=== PATIENT | female | born 1940 | race Caucasian/White ===

== ENCOUNTER → 2016-10-16 | Outpatient (CLI) | payer MEDICARE ==
[~2016-10-16] MED LIST: ASPIRIN81 M1; COUMADIN1 MG PO; DARVOCET N 1001 TAB PO; DAYPRO600 M1 PO; DELTASONE10 MG PO; DIGOXIN0.125 MG PO; DOXYCYCLINE HY100 M5 PO; HYZAAR 50/12.5M1 TAB PO; KEFLEX500 MG PO; LOPRESSOR25 MG PO; PRILOSEC OTC20 MG PO; PROMETHAZINE DM; ZITHROMAX250 MG PO
[2016-10-16 13:24] LABS: BASO # 0.1 10*3/uL (0.0-0.1); BASO % 1.1 % (0.0-1.0); EOS # 0.1 10*3/uL (0.0-0.4); EOS % 2.1 % (1.0-4.0); HEMATOCRIT 33.9 % (37.0-47.0); HEMOGLOBIN 11.1 g/dl (12.0-16.0); LYMPH % 38.1 % (27.0-41.0); MEAN CELL VOLUME 101.2 fl (81.0-99.0); MEAN CORPUSCULAR HGB 33.1 pg (27.0-31.0); MEAN CORPUSCULAR HGB CONC 32.7 g/dl (33.0-37.0); MEAN PLATELET VOLUME 12.8 fl (9.6-12.3); MONO # 0.4 10*3/uL (0.1-1.0); MONO % 8.3 % (3.0-9.0); NEUT # 2.7 10*3/uL (2.3-7.9); PLATELET COUNT AUTOMATED 134 10*3/uL (130-400); RED BLOOD COUNT 3.35 10*6/uL (4.10-5.10); RED CELL DISTRI WIDTH 14.6 % (0-14.5); WHITE BLOOD COUNT 5.3 10*3/uL (4.8-10.8)
[2016-10-16 13:38] LABS: ALKALINE PHOSPHATASE 238 U/L (45-117); BILIRUBIN, TOTAL 1.2 mg/dl (0.2-1.0); BUN 20 mg/dl (7-24); CARBON DIOXIDE 26 mmol/L (21-32); CHLORIDE 107 mmol/L (98-107); CHOLESTEROL 175 mg/dL (<200); EST GLOM FILT AFRICAN AMERICAN > 60 ml/min; FREE THYROXIN INDEX/T7 2.4 (1.5-5.4); GLUCOSE 89 mg/dL (65-99); HDL CHOLESTEROL 65 mg/dl (40-60); LDL CHOLESTEROL 99 mg/dL (9-159); POTASSIUM 3.6 mmol/L (3.5-5.1); SGOT/AST 95 IU/L (3-35); SGPT/ALT 70 U/L (12-78); SODIUM 140 mmol/L (136-145); T3 UPTAKE 32 % (31-39); THYROXINE (T4) TOTAL 7.6 ug/dl (4.8-13.9); TOTAL PROTEIN 7.3 gm/dL (6.4-8.2); TRIGLYCERIDES 56 mg/dl (<150); VLDL CHOLESTEROL 11 mg/dL (6-40)
== END | disposition home or self-care (01) ==
LOC: LAB 12:36
PROVIDERS: Internal Medicine
DX: I34.1 Nonrheumatic mitral (valve) prolapse (principal); I10 Essential (primary) hypertension; K74.60 Unspecified cirrhosis of liver; E78.2 Mixed hyperlipidemia; E03.9 Hypothyroidism, unspecified

== ENCOUNTER 2016-10-21 18:53 | Inpatient (IN) | payer MEDICARE ==
[~2016-10-21] VITALS: Ht 160 cm; Wt 53.2 kg
[2016-10-21] VITALS (9 sets, daily range): BP systolic 105–119; BP diastolic 49–59
--- NOTE | ~2016-10-21 | WRIGHTHP ---
[place], [place] PATIENT HISTORY AND PHYSICAL EXAM NAME: GILBERT BOUDREAUX [facility] #: [id number] UNIT #: [id number] ROOM: [facility] DOCTOR: SIL JIMENES MD BIRTHDATE: [birth year] DOS: 10/22/2016 HISTORY OF PRESENT ILLNESS: A 76 years old white female, known case of COPD, cirrhosis of liver, systemic hypertension, cardiomegaly, mitral and tricuspid regurgitation and intermittent atrial fibrillation, was seen in the Emergency Room with black tarry stool, which she has been experiencing for the last few days and was noted to have a hemoglobin of 6.4 and was started on IV fluids and blood transfusion and admitted to the hospital for further management. The patient denies any history of abdominal pain or any altered bowel movements. PAST MEDICAL HISTORY: Pertinent for celiac disease and lactose intolerance, atrial fibrillation intermittent, mitral and tricuspid regurgitation, biatrial enlargement and LVH, COPD, hyperproteinemia, hyperlipidemia, stable 4 mm nodule right upper lobe, osteopenia, cirrhosis of liver. PAST SURGICAL HISTORY: Status post partial hysterectomy in the remote past in [place], [place]. MEDICATIONS: She is on aspirin enteric coated 81 mg daily, Caltrate with vitamin D 1 b.i.d., Klor-Con 8 mEq once a day, Losartan/hydrochlorothiazide 50/12.5 mg, half a tablet daily, multivitamin once a day, vitamin C 500 mg once a day, vitamin D3 400 International units once a day. SOCIAL HISTORY: Former smoker, 20 pack years for 30 years. FAMILY HISTORY: She is , 2 boys and 2 girls. Mother is hypertensive and father of CA. PHYSICAL EXAMINATION: GENERAL: The patient is comfortable in bed. HEAD AND ENT: Benign. VITAL SIGNS: Weight is 112 pounds, height is 63 inches. Blood pressure is 90/60, heart rate is 86 and regular, respirations are 16. NECK: JVP is not visualized. No carotid bruit. LUNGS: Increased AP diameter of the chest. Air entry equal on both sides. No foreign sounds noted. CARDIOVASCULAR: Heart size is upper limit of normal. First and second heart sounds are normal. Grade I/ ejection systolic murmur noted over the precordium. ABDOMEN: Very minimal tenderness in the epigastrium. There is no guarding or rigidity. No masses palpable. Peristalsis is normal. Hernia sites negative. EXTREMITIES: Benign. No evidence of edema or phlebitis. Peripheral pulsations bilaterally, 1/4 plus. LYMPHATICS: Lymph nodes are negative. NEUROLOGIC: Checkup is normal. IMPRESSION: 1. Acute upper gastrointestinal bleeding with hypotension and anemia. 2. Unknown case of systemic hypertension. 3. Cardiomegaly with mitral regurgitation, tricuspid regurgitation and [place], [place] PATIENT HISTORY AND PHYSICAL EXAM [facility]: [id number] UNIT #: [id number] ROOM: [facility] DOCTOR: SIL JIMENES MD BIRTHDATE: [birth year] intermittent atrial fibrillation, cirrhosis of liver, known alcoholic and osteopenia and chronic obstructive lung disease. PLAN: RBC transfusions, IV fluids, IV Protonix and p.o. Gaviscon. GI consultation with Dr. Cheek has been obtained for EGD and colonoscopy. We will continue to monitor her H and H pending EGD findings. SIL JIMENES MD CM:HISPHYS:PATIENT HISTORY AND PHYSICAL EXAMINATION 1310 1342 SIL JIMENES MD 10/22/16 1341 interface
--- NOTE | ~2016-10-21 | PR ---
[place], [place] PROGRESS NOTE [id number] UNIT #: [id number] ROOM: [facility]- DOCTOR: SIL JIMENES MD BIRTHDATE: [birth year] DOS: SUBJECTIVE: This 76-year-old white female admitted with upper GI bleeding with hemoglobin of 6. She has been treated with 3 units of RBC transfusions and this morning her hemoglobin is 9.3 with hematocrit of 27.7. EGD was performed yesterday by Dr. Cheek and showed evidence of bleeding from esophageal varices and banding procedure was performed. This patient has a known case of cirrhosis of liver, nonalcoholic. OBJECTIVE: VITAL SIGNS: This patient is hemodynamically stable with heart rate of 62 and blood pressure of 120/60. Temperature is normal. LUNGS: Clear without any foreign sounds. HEART: Sounds are normal without any evidence of murmur or gallop. ABDOMEN: Soft and nontender. EXTREMITIES: Benign without any evidence of edema or phlebitis. The patient has IV normal saline running at 100 mL an hour. She is also on IV Protonix 40 mg IV every 12 hours and getting soft liquid diet due to banding procedure for esophageal varices. We will repeat her H and H and continue present line of medications. Family member is present in exam room and all questions answered. SIL JIMENES MD CM:PNTRANS 1329 19 SIL JIMENES MD 10/23/161819 interface
--- NOTE | ~2016-10-21 | ECHO ---
[place], [place] ADULT ECHOCARDIOGRAPHY REPORT NAME GILBERT BOUDREAUX UNIT #: [id number] ROOM: [facility]- DOCTOR: JALIL NEUMANN,SIL BIRTHDATE: [birth year] DOS: SUBJECTIVE: This 76-year-old white female, a known case of cirrhosis of liver, admitted with upper gastrointestinal bleeding, which was noted to be coming from the esophageal varices and banding was performed by scourer, Dr. Cheek. Post-procedure, she is doing very well. Her blood pressure is everyday improving and this morning it is 140/76, heart rate of 80, normal temperature. Her H and H is also stable with hemoglobin of 9.5, it was 6.4 on admission. She is on full liquid diet and also getting IV fluids and IV Protonix 40 mg q.12h. and other p.r.n. orders. Clinically, she is doing very well. OBJECTIVE: HEART: Her heart sounds are normal. LUNGS: Clear. ABDOMEN: Soft and nontender. There is a [id number] amount of ascites due to underlying cirrhosis of liver. There is no tenderness and peristalsis is normal. EXTREMITIES: Benign without any evidence of edema or phlebitis. PLAN: To transfer now this patient from ICU to [facility] and since I am going out of town, I will transfer this patient to services of hospitalist. SIL JIMENES MD CM:ECHO:ADULT ECHOCARDIOGRAPHY REPORT 1317 1537 SIL JIMENES MD
--- NOTE | ~2016-10-21 | CON ---
[place], [place] REPORT OF CONSULTATION NAME: GILBERT BOUDREAUX UNIT #: [id number] ROOM: [facility] DOCTOR: RIVERA NEUMANNRODNEY BIRTHDATE: [birth year] DOS: 10/22/2016 HISTORY OF PRESENT ILLNESS: A 76-year-old patient who has presented with black tarry stool, initially was evaluated in the Emergency Room, was found to have H and H of 11 and 33, macrocytic indices. Comprehensive metabolic panel was done. Electrolytes balanced, BUN and creatinine within normal limits, and bilirubin 1.2, AST of 95, ALT of 70, alkaline phosphatase 238. Thyroid studies normal appearing. White blood cell 16, H and H dropped to 6 and 20.8, macrocytic indices. Platelets 171. Lactic acid 3.7. Chest x-ray, emphysematous chest, cardiopulmonary status was reassessed. Lipase was 298, alkaline phosphatase again remains elevated at 204. C-reactive protein normal. Lactic acid 1.2, lactic acid 1.3 again was reassessed. H and H did not improve more than 6.4 and 19 after 1 unit of packed cells transfusion. The patient therefore admitted for definitive evaluation. The patient with cirrhosis, hypertension, pneumonia, atrial fibrillation, pulmonary nodules, these are also established in the past. The patient with history of celiac disease. PAST SURGICAL HISTORY: Hysterectomy, cataracts. SOCIAL HISTORY: One pack smoker and nonalcohol consumer. She tells me many years ago she drank alcohol. ALLERGIES: No known medication. FAMILY HISTORY: Unremarkable. MEDICATION LIST: Recent data is reviewed. REVIEW OF SYSTEMS: HEENT: Denies double vision, blurred vision. RESPIRATORY: Denies shortness of breath. CARDIOVASCULAR: Denies chest pain. DIGESTIVE SYSTEM: History of cirrhosis and hematemesis. PHYSICAL EXAMINATION: VITAL SIGNS: Stable. HEENT: Head normocephalic, nontraumatic. Mouth and buccal mucosa benign. NECK: Supple, no thyromegaly, no cervical lymphadenopathy. CHEST: Symmetric anatomy, equal expansion. No wheeze, no rhonchi. HEART: Normal sinus rhythm. No gallop, no murmur. ABDOMEN: Evidence of ascites was felt on physical examination with shifting fluid. EXTREMITIES: No cyanosis, no pedal edema. NEUROLOGIC: Alert, oriented to time, place and person. No evidence of encephalopathy at the present time. IMPRESSION: Abnormal liver function test, history of macrocytic anemia, drop in hemoglobin and hematocrit, black tarry stool, ruling out portal hypertension, ruling out esophageal varicosity. Other adjunctive diagnoses; systemic hypertension is being managed, transfusion in progress, workup in effect and [place], [place] REPORT OF CONSULTATION NAME: GILBERT BOUDREAUX UNIT #: [id number] ROOM: [facility] DOCTOR: RODNEY STAFFORD MD BIRTHDATE: [birth year] underlying liver disease, etiology in question at the present time. RODNEY STAFFORD MD CM:CONSTR:REPORT OF CONSULTATION 1257 10/23/16 0205 interface
--- NOTE | ~2016-10-21 | O ---
[place], [place] OPERATIVE NOTE NAME: GILBERT BOUDREAUX UNIT #: [id number] ROOM: [facility]- DOCTOR: RIVERA NEUMANNRODNEY BIRTHDATE: [birth year] DOS: INDICATIONS: The patient is a 76-year-old who has presented with chief complaint of GI bleed aggressively and has been undergoing investigation. She received 1 unit of packed cell. Her H and H remained around 6 and 19. She was given 2 more units, she continued to have melanotic stool. She was not on anticoagulants. The patient carries a vague history of alcohol consumption aggressively when she was in high school and about, but the story and the amount and duration of alcohol consumption was not adding up to me. She is having history of celiac sprue that she has known about for past 10 years as well. PROCEDURE: Today's procedure part of investigation is panendoscopy plus esophageal band ligation of varicosity. PREMEDICATION: Versed and Diprivan. SCOPE: Olympus forward-viewing gastroscope Q10 video. REPORT: After putting the patient in the left lateral position and after application of lubricant to the scope, the scope was introduced. Thereafter, under direct visualization, I advanced through the length of the esophagus. Lower third of the esophagus, a 4+ esophageal varicosity at 2 o'clock position was identified with a bleeding spot on the surface and photographed. Gastric pouch was entered. Hiatal hernia and proximal gastric varicosities were identified. Residual blood in the stomach was noticed. Duodenal bulb, second and third part within normal limits. Withdrawing the scope back to the target point which is lower esophagus and the bleeding is spot targeted and 3 band ligation on the same spot was performed. Photographic series obtained. Ligation was successful. The patient extubated, tolerated procedure well. IMPRESSION: 1. Esophageal varicosity with bleeding spot status post band ligation. 2. Hiatal hernia. 3. Proximal gastric varicosity as well. Definitely the source of bleeding was addressed with the above procedure explained above. PLAN AND DISCUSSION: Due to the fact that she is hypotensive, we will withhold ADAM inhibitor and thiazide derivatives, BP medication and we will await until she has to recovery of her blood pressure and at such a time, we do definitively ensure that the patient remains on beta eugenio to reduce her portal pressure as well as systemic pressure and based on addition of beta eugenio, we can built on additional coverage if ADAM inhibitors are necessary. On the other hand, we can even use Corgard 12.5 mg in future instead of Inderal. On further discussion, she is going to stay on ice cream, milk shake and ice cold liquids for the next 3 days to prevent mechanical trauma to the band ligation and soft diet thereafter for 10 days for sure and transfusion of 2 units today. Follow up on H and H tomorrow morning and 4 hours after transfusion today, continuation with PPI, Protonix 40 mg daily to reduce acidity and symptomatology of dyspepsia and clinical reassessment. This patient has history of cirrhosis, partially could be secondary to underlying old history of alcohol, partially could be secondary [place], [place] OPERATIVE NOTE NAME: GILBERT BOUDREAUX UNIT #: [id number] ROOM: [facility] DOCTOR: RIVERA NEUMANN,RODNEY BIRTHDATE: [birth year] to celiac disease and contribution from autoimmune hepatitis, all has been on the differential consideration. On the other hand, we are going to organize a CT scan of the abdomen and pelvis. We are concerned to assure that there is no pathology beyond what I expect in the liver particularly to rule out cholangiocarcinoma or any other lesions in the liver, except nodularity. I am sure that we are going to find some ascites in the abdomen as well. Thank you very much indeed. RODNEY STAFFORD MD CM:OPRECORD:OPERATIVE NOTE 1347 1426 RODNEY STAFFORD MD 10/22/16 1426 interface
[2016-10-21 19:43] LABS: BASO % 0.2 % (0.0-1.0); EOS # 0.2 10*3/uL (0.0-0.4); EOS % 1.2 % (1.0-4.0); HEMATOCRIT 20.8 % (37.0-47.0); HEMOGLOBIN 6.6 g/dl (12.0-16.0); LYMPH # 2.5 10*3/uL (1.3-4.4); LYMPH % 15.3 % (27.0-41.0); MEAN CELL VOLUME 105.6 fl (81.0-99.0); MEAN CORPUSCULAR HGB 33.5 pg (27.0-31.0); MEAN CORPUSCULAR HGB CONC 31.7 g/dl (33.0-37.0); MEAN PLATELET VOLUME 13.2 fl (9.6-12.3); MONO # 1.4 10*3/uL (0.1-1.0); MONO % 8.4 % (3.0-9.0); NEUT # 12.1 10*3/uL (2.3-7.9); PLATELET COUNT AUTOMATED 171 10*3/uL (130-400); RED BLOOD COUNT 1.97 10*6/uL (4.10-5.10); RED CELL DISTRI WIDTH 16.8 % (0-14.5); WHITE BLOOD COUNT 16.3 10*3/uL (4.8-10.8)
[2016-10-21 19:53] LABS: ACT PARTIAL THROMBO TIME 23.6 SECONDS (20.8-31.5); INTERNATIONAL NORM RATIO 1.1 (2.0-3.5)
[2016-10-21 20:05] LABS: ALBUMIN 2.4 gm/dl (3.1-4.5); ALKALINE PHOSPHATASE 204 U/L (45-117); BUN 40 mg/dl (7-24); CHLORIDE 106 mmol/L (98-107); CREATININE 0.72 mg/dL (0.55-1.02); LIPASE 298 U/L (73-393); POTASSIUM 4.2 mmol/L (3.5-5.1); SGOT/AST 95 IU/L (3-35); SGPT/ALT 66 U/L (12-78); SODIUM 140 mmol/L (136-145); TOTAL PROTEIN 5.9 gm/dL (6.4-8.2)
[2016-10-21 20:10] LABS: TROPONIN I < 0.015 ng/ml (<0.045)
[2016-10-21 20:29] LABS: BILIRUBIN NEGATIVE (NEGATIVE); BLOOD NEGATIVE (NEGATIVE); CLARITY CLEAR (CLEAR); COLOR YELLOW (YELLOW); GLUCOSE NEGATIVE (NEGATIVE); KETONE NEGATIVE (NEGATIVE); LEUKO ESTERASE NEGATIVE (NEGATIVE); NITRITE NEGATIVE (NEGATIVE); UROBILINOGEN 0.2 E.U./dl (0.2-1.0)
[2016-10-21 20:40] LABS: BACTERIA TRACE; RBC 0-2 rbc/hpf (0-2); WBC 0-2 wbc/hpf (0-5)
[2016-10-21] MEDS ORDERED: MULTIVITAMINS1 EAC5 PO (22:57)
[2016-10-21] MEDS ORDERED: CALCIUM + VITA1 EAC2 PO (22:58)
[2016-10-21] MEDS ORDERED: CO Q-1010 M2 PO (22:58)
[2016-10-21] MEDS ORDERED: PROBIOTIC COMP1 EACH PO (22:59)
[2016-10-21] MEDS ORDERED: LOSARTAN-HCTZ1 EAC2 PO (23:00)
[2016-10-21] MEDS ORDERED: ATIVAN0.5 MG PO (23:01)
[2016-10-22] VITALS (15 sets, daily range): BP systolic 90–133; BP diastolic 41–74
[2016-10-22 06:20] LABS: HEMATOCRIT 19.5 % (37.0-47.0); HEMOGLOBIN 6.4 g/dl (12.0-16.0)
[2016-10-22 17:30] LABS: HEMATOCRIT 28.8 % (37.0-47.0)
[2016-10-23] VITALS: BP 106/57
[2016-10-23 04:00] VITALS: BP 103/52
[2016-10-23 07:04] LABS: HEMATOCRIT 27.7 % (37.0-47.0); HEMOGLOBIN 9.3 g/dl (12.0-16.0)
[2016-10-23 08:00] VITALS: BP 114/60
[2016-10-23 12:00] VITALS: BP 120/63
[2016-10-23 16:00] VITALS: BP 118/61
[2016-10-23 20:00] VITALS: BP 133/66
[2016-10-24] VITALS: BP 127/68
[2016-10-24 04:00] VITALS: BP 130/71
[2016-10-24 06:04] LABS: HEMATOCRIT 28.7 % (37.0-47.0); HEMOGLOBIN 9.5 g/dl (12.0-16.0)
[2016-10-24 08:00] VITALS: BP 134/68
[2016-10-24 12:00] VITALS: BP 140/76
[2016-10-24 16:00] VITALS: BP 128/78
[2016-10-24 20:00] VITALS: BP 120/60
[2016-10-25] VITALS: BP 141/71
[2016-10-25 06:09] LABS: HEMATOCRIT 28.6 % (37.0-47.0); HEMOGLOBIN 9.3 g/dl (12.0-16.0)
[2016-10-25 08:00] VITALS: BP 143/62
[2016-10-25 12:00] VITALS: BP 131/70
[2016-10-25 16:00] VITALS: BP 136/70
[2016-10-25 20:00] VITALS: BP 125/67
[2016-10-26] VITALS: BP 107/42
[2016-10-26 06:24] LABS: HEMATOCRIT 28.4 % (37.0-47.0); HEMOGLOBIN 9.4 g/dl (12.0-16.0)
[2016-10-26 08:00] VITALS: BP 119/55
[2016-10-26] MEDS ORDERED: PROTONIX40 MG PO (08:47)
== END 2016-10-26 10:39 | disposition home or self-care (01) | DRG 432 ==
LOC: ED 18:53 → EDHOLD 21:18 → ICCU 21:18 → 5E 21:18 → ICCU 21:27 → 5E 10-25 06:10
PROVIDERS: Internal Medicine; Student in an Organized Health Care Education/Training Program; ADMIT Internal Medicine
PROC: 30233N1 Transfusion of Nonautologous Red Blood Cells into Peripheral Vein, Percutaneous Approach (ICD-10-PCS; 2016-10-21)
PROC: 06L34CZ Occlusion of Esophageal Vein with Extraluminal Device, Percutaneous Endoscopic Approach (ICD-10-PCS; principal; 2016-10-22)
DX: K70.30 Alcoholic cirrhosis of liver without ascites (principal); E43 Unspecified severe protein-calorie malnutrition; I85.11 Secondary esophageal varices with bleeding; E87.2 Acidosis; I95.9 Hypotension, unspecified; D62 Acute posthemorrhagic anemia; R65.10 Systemic inflammatory response syndrome (SIRS) of non-infectious origin without acute organ dysfunction; I08.1 Rheumatic disorders of both mitral and tricuspid valves; J44.9 Chronic obstructive pulmonary disease, unspecified; E78.5 Hyperlipidemia, unspecified; I11.9 Hypertensive heart disease without heart failure; M85.80 Other specified disorders of bone density and structure, unspecified site; K44.9 Diaphragmatic hernia without obstruction or gangrene; I48.0 Paroxysmal atrial fibrillation; I86.4 Gastric varices; Z68.20 Body mass index [BMI] 20.0-20.9, adult; Z79.899 Other long term (current) drug therapy; Z90.710 Acquired absence of both cervix and uterus; Z87.891 Personal history of nicotine dependence; Z82.49 Family history of ischemic heart disease and other diseases of the circulatory system; Z80.8 Family history of malignant neoplasm of other organs or systems

== ENCOUNTER → 2016-11-09 | Outpatient (CLI) | payer MEDICARE ==
[~2016-11-09] MED LIST changes: +ATIVAN0.5 MG PO; +CALCIUM + VITA1 EAC2 PO; +CO Q-1010 M2 PO; +LOSARTAN-HCTZ1 EAC2 PO; +MULTIVITAMINS1 EAC5 PO; +PROBIOTIC COMP1 EACH PO; +PROTONIX40 MG PO
[2016-11-09 10:47] LABS: BASO # 0.1 10*3/uL (0.0-0.1); BASO % 1.8 % (0.0-1.0); EOS # 0.1 10*3/uL (0.0-0.4); EOS % 1.8 % (1.0-4.0); HEMATOCRIT 37.8 % (37.0-47.0); LYMPH # 1.2 10*3/uL (1.3-4.4); LYMPH % 26.8 % (27.0-41.0); MEAN CELL VOLUME 102.7 fl (81.0-99.0); MEAN CORPUSCULAR HGB 32.6 pg (27.0-31.0); MEAN CORPUSCULAR HGB CONC 31.7 g/dl (33.0-37.0); MEAN PLATELET VOLUME 11.5 fl (9.6-12.3); MONO # 0.5 10*3/uL (0.1-1.0); MONO % 10.5 % (3.0-9.0); NEUT # 2.7 10*3/uL (2.3-7.9); NEUT % 58.9 % (47.0-73.0); PLATELET COUNT AUTOMATED 188 10*3/uL (130-400); RED BLOOD COUNT 3.68 10*6/uL (4.10-5.10); RED CELL DISTRI WIDTH 14.6 % (0-14.5); WHITE BLOOD COUNT 4.6 10*3/uL (4.8-10.8)
[2016-11-09 11:15] LABS: ALBUMIN 2.7 gm/dl (3.1-4.5); ALKALINE PHOSPHATASE 248 U/L (45-117); BUN 8 mg/dl (7-24); CHLORIDE 108 mmol/L (98-107); CREATININE 0.57 mg/dL (0.55-1.02); POTASSIUM 3.9 mmol/L (3.5-5.1); SGOT/AST 108 IU/L (3-35); SGPT/ALT 72 U/L (12-78); SODIUM 140 mmol/L (136-145); TOTAL PROTEIN 7.1 gm/dL (6.4-8.2)
[2016-11-09 11:16] LABS: ACT PARTIAL THROMBO TIME 28.4 SECONDS (20.8-31.5); INTERNATIONAL NORM RATIO 1.1 (2.0-3.5)
== END | disposition home or self-care (01) ==
LOC: EDSTATUS 11:00
PROVIDERS: Internal Medicine Gastroenterology
DX: R18.8 Other ascites (principal); J90 Pleural effusion, not elsewhere classified

== ENCOUNTER 2017-02-25 16:26 | Inpatient (IN) | payer MEDICARE ==
[~2017-02-25] VITALS: Ht 160 cm; Wt 61.0 kg
--- NOTE | ~2017-02-25 | CON ---
[place], [place] REPORT OF CONSULTATION NAME: GILBERT BOUDREAUX UNIT #: [id number] ROOM: 512 DOCTOR: DANIELLA ESPAÑA MDARNAUD BIRTHDATE: [birth year] DOS: 02/26/2017 PULMONARY CONSULTATION CONSULTATION REQUESTED BY: Hospitalist Services. REASON FOR CONSULTATION: Pleural fluid. HISTORY OF PRESENT ILLNESS: This is a 76-year-old white female who was noted relative poor historian. She has been admitted to the hospital. As the patient developed symptoms of increased abdominal distention with the shortness of breath. The shortness of breath has been noted with gradual worsening. The patient was also noted with edema of the left lower extremity as well. The shortness of breath and other symptoms had been noted to gradually progress in the past week or so. The patient did report symptoms of cough, which are noted nonproductive intermittently as well. She has symptoms of wheezing or any chest pain. She has been recently diagnosed with cirrhosis of the liver. The patient in October 2016 was transferred [facility] for the GI bleeding, noted gastric esophageal varices, which were banded. The patient denies any symptoms of chest pain or hemoptysis. Shortness of breath has been noted the same since admission. REVIEW OF SYSTEMS: CONSTITUTIONAL: The patient reported symptoms of fatigue and tiredness. Denies any fever or chills. EYES: Denies any burning, redness, or tenderness. EAR, NOSE, THROAT SYMPTOMS: No sore throat. No otalgia, postnasal drainage or epistaxis. CARDIOVASCULAR: Denies angina pain, edema, pain of the lower extremities at this time, but reported with edema of the left lower extremity seem to be decreased ____. GASTROINTESTINAL: Abdominal distention, most likely ascites. There was no pain described. There were symptoms of hematemesis, melena, or hematochezia reported. Denies any history of abnormal weight loss. GENITOURINARY SYMPTOMS: Dysuria, suprapubic pain, hematuria. MUSCULOSKELETAL: Denies acute joint pain, redness, tenderness. SKIN: Denies lesions or rashes. CENTRAL NERVOUS SYSTEM: Denies any dizziness, headache, diplopia, syncopal episodes. The remaining systems were reviewed. They were noted all negative. PAST MEDICAL HISTORY: 1. Cirrhosis of the liver. 2. Hypercholesterolemia. 3. Anemia. 4. GI bleeding and chronic disease. 5. History of celiac disease. 6. History of atrial fibrillation. 7. History of hypercholesterolemia. [place], [place] REPORT OF CONSULTATION NAME: GILBERT BOUDREAUX UNIT #: [id number] ROOM: 512 DOCTOR: DANIELLA ESPAÑA MD,ARNAUD BIRTHDATE: [birth year] 8. History of essential hypertension. SOCIAL HISTORY: The patient is currently . She lives at home. Denies history of alcohol use, illicit drug use at this time. She stated she has smoked cigarettes, which were discontinued approximately 30 years ago, used to smoke about a pack of cigarettes per day. FAMILY HISTORY: Reported, the father from complication related to colon cancer at the age of 60+ years old. HOME MEDICATIONS: Listed use of calcium carbonate, oral Lasix, probiotic, Ativan, losartan with hydrochlorothiazide, multivitamin, Protonix, potassium chloride and CoQ10. DRUG ALLERGIES: Lactose intolerance. PHYSICAL EXAMINATION: GENERAL: This is a 76-year-old female who has been noted currently awake and alert without any acute distress at the time of the assessment. VITAL SIGNS: Height was recorded by the nursing staff at the time of admission with height of 5 feet 3 inches, weight 134 pounds, BMI 23.8. Vital signs are normal temperature, respiratory rate 18-16, heart rate 83-89, blood pressure 118/51-128/54. Pulse oxygen saturation on 2 liters 99% saturation. HEENT: Shows head was atraumatic. Eyes nonicterus. NECK: Supple. CARDIOVASCULAR: S1, S2 is audible. LUNGS: The patient was noted without any crackles. Decreased breath sounds are noted significant in the left and the lower lung, which are noted much more on the left than the right lower lung. There were no crackles heard. ABDOMEN: Soft, nontender. EXTREMITIES: The patient was noted without any acute edema. LABORATORY DATA: The chest x-ray that was done was noted with findings of rounded opacity noted in the right lower lung, which was seen previously on the chest x-ray that was done few weeks ago. ASSESSMENT. Interval development of appear like partially loculated pleural fluid developed moderate size in the left side mild cardiomegaly. The patient was also seen, there were no findings of acute congestive heart failure as well. LABORATORY DATA: Other labs were reviewed. CBC on 02/25/2017, hemoglobin 8.7, hematocrit 28.1, WBC count normal, platelet count were normal. PT/PTT yesterday was noted with normal PT and PTT. CMP on 02/25/2017. Normal BUN and creatinine. Potassium noted mildly decreased at 3.4. ____ noted as 2.6 with a total bilirubin 1.2 and AST of 70. BMP was noted at 350. CBC this morning WBC count of 4.2, hemoglobin 7.7, hematocrit 24.1, platelet count 187,000. Ammonia level noted mildly elevated at 44. The PT/INR 1.2 this morning. BMP this morning, normal BUN and creatinine. Potassium has been corrected. The abdomen still noted decreased with bilirubin 1.1, AST of 58. Alkaline phosphate of 180. [place], [place] REPORT OF CONSULTATION NAME: GILBERT BOUDREAUX UNIT #: [id number] ROOM: 512 DOCTOR: DANIELLA ESPAÑA MD,ARNAUD BIRTHDATE: [birth year] IMPRESSION: 1. The patient who has been currently admitted to the hospital noted current symptoms related to the current pleural fluid density in the right lower lobe. The patient was noted ventral hernia containing fat or eventration of the diaphragm or mass could be considered. 2. Partially loculated pleural fluid, etiology unclear at this time with a history of known ascites and cirrhosis of the liver. 3. Past history of remote nicotine abuse. The patient discontinued approximately 30 years ago. There has not been any diagnosis of past COPD reported. 4. History of essential hypertension. 5. Anxiety disorder. 6. Anemia related to past gastrointestinal bleeding. 7. Current leukopenia may be related to underlying cirrhosis of the liver. PLAN OF MANAGEMENT: CT scan of the chest has been ordered without contrast that will be assessed for this patient prior to making any further determination, intervention of assessment pleural fluid. Thoracentesis of the patient sampling of the pleural fluid might be needed. The mass lesion noted in the right lung the patient will be addressed accordingly. Other supportive therapy, plan of management and care. Usual care. Additional treatment changes will be recommended based on the progression of the illness. Thanks for allowing me to participate in the care of this patient. ARNAUD BREWER MD CM:CONSTR:REPORT OF CONSULTATION 1255 02/26/177 interface
--- NOTE | ~2017-02-25 | CON ---
[place], [place] REPORT OF CONSULTATION NAME: GILBERT BOUDREAUX UNIT #: [id number] ROOM: 512 DOCTOR: RODNEY STAFFORD MD BIRTHDATE: [birth year] DOS: 02/27/2017 HISTORY OF PRESENT ILLNESS: A 76-year-old patient who presented with chief complaint of distention of the abdomen, tiredness and was investigated and was found to have white blood cell of 5, H and H of 8 and 25 with platelet count of 238. INR of 1.1. Comprehensive metabolic panel, GFR normal. Electrolytes borderline. Liver function tests, elevated SGOT 70, alkaline phosphatase 230. Magnesium and BNP normal. Chest x-ray and CT scan of the abdomen was reviewed, not only ascites, cirrhosis and right middle lung mass and thyroid carcinoma has been identified. Serum ammonia level 44. Urinalysis, heavy gram-positive cocci on board in the presence of intense ascites, which is a risk factor for spontaneous bacterial peritonitis. PAST MEDICAL HISTORY: Nonalcoholic steatohepatitis, hypercholesterolemia, atrial fibrillation, celiac disease, hypertension, anemia, hyperammonemia. SOCIAL HISTORY: Nonsmoker and nonalcohol consumer. FAMILY HISTORY: Noncontributory. ALLERGIES: LACTOSE INTOLERANT. MEDICATIONS: List has been reviewed. REVIEW OF SYSTEMS: HEENT: Denies double vision, blurred vision. RESPIRATORY: Admits to shortness of breath. CARDIOVASCULAR: Denies chest pain. DIGESTIVE SYSTEM: Cirrhosis, intense ascites. GENITOURINARY: Urinary tract infection. PHYSICAL EXAMINATION: HEENT: Head is normocephalic, nontraumatic. Mouth and buccal mucosa benign. NECK: Supple. No thyromegaly, no cervical lymphadenopathy. CHEST: Symmetric anatomy, equal expansion. LUNGS: Muffled breath sounds at bases of the lungs to almost no air entry. HEART: Normal sinus rhythm at the present time, grade 2/6 systolic murmur. ABDOMEN: Distended, dense, most likely another gallon of fluid ascites in the abdomen. Bowel sounds present. EXTREMITIES: Soft. A 2+ edema was noticed. NEUROLOGIC: Appears to be alert and oriented. Labs reviewed, records reviewed, data reviewed. IMPRESSION: Pleural effusion, lung mass, cirrhotic liver with nonalcoholic steatohepatitis etiology most likely, ascites formation, hyperammonemia, anemia, all has been recognized. PLAN AND DISCUSSION: This patient is status post 3 liters of ascites removal. She appears to have a very dense abdomen and also some difficulty with breathing. Therefore, we are going to request Dr. Fagan to consider a [place], [place] REPORT OF CONSULTATION NAME: GILBERT BOUDREAUX UNIT #: [id number] ROOM: [facility] DOCTOR: RIVERA NEUMANN,RODNEY BIRTHDATE: [birth year] thoracentesis before her discharge as well as a paracentesis sono-guided through Radiology so that we can have enough reserve for lung expansion. On the other hand, she requires to be on antibiotic therapy to prevent spontaneous bacterial peritonitis. RODNEY STAFFORD MD CM:CONSTR:REPORT OF CONSULTATION 1541 02/28/17 0030 interface
--- NOTE | ~2017-02-25 | PR ---
[place], [place] PROGRESS NOTE NAME: GILBERT BOUDREAUX [facility] #: [id number] UNIT #: [id number] ROOM: 512 DOCTOR: DANIELLA ESPAÑA MDARNAUD BIRTHDATE: [birth year] DOS: 02/27/2017 SUBJECTIVE: She has been using oxygen supplementation. The patient underwent paracentesis yesterday was done by the radiology service. Total 3100 mL of pleural fluid was collected. She denies any cough. Denies any symptoms of hemoptysis or any chest pain. OBJECTIVE: VITAL SIGNS: The patient showed normal temperature, respiratory rate 18, heart rate 77, blood pressure 102/46-107/50. The pulse oxygen saturation on room air 99% saturation this morning. Previous 2 liters was 98% saturation. HEENT: Showed no acute change. NECK: Supple. CARDIOVASCULAR: S1, S2 audible. LUNGS: Decreased breath sounds noted in the right lower lobe as previously as well as in the right lower lung. There were no wheezing or crackles. ABDOMEN: Soft, at this time noted reduction of the ascites. The bowel sounds are present. EXTREMITIES: Showed minimal ankle edema. LABORATORY DATA: CBC today: WBC count normal, hemoglobin 8.2, hematocrit of 25.9, platelet count 218,000. BMP of the patient, normal BUN and creatinine. Potassium was noted decreased at 3.3. Cell count of the peritoneal fluid noted as 73. The CT scan of the chest that was done yesterday shows moderate to large left pleural fluid was noted with small possible medium right pleural effusion. The area of compression atelectasis noted. IMPRESSION: The patient who has been currently noted at this time with bilateral large pleural fluid, most related to underlying liver cirrhosis, additional problem such as cardiac etiology, congestive heart failure would be considered. Atypical etiology pleural fluid still cannot be excluded including malignancy because of the atypical presentation. The fluid noted much larger on the left than the right side. PLAN OF MANAGEMENT: The patient was recommended for thoracentesis with ultrasound-guided, but the patient deferred that. She would like to be treated this conservatively with diuretic therapy and monitoring at the present time. If she does change her mind for thoracentesis, certainly it could be done at the bedside. In the meantime, continue to optimize the nutritional status as well. Usual care, other supportive plan of therapy and care. [place], [place] PROGRESS NOTE NAME: GILBERT BOUDREAUX UNIT #: [id number] ROOM: 512 DOCTOR: ARNAUD HANSON MD BIRTHDATE: [birth year] ARNAUD BREWER MD CM:ELIJAH [id number] ARNAUD ESPAÑA MD 02/27/171845 interface
--- NOTE | ~2017-02-25 | PR ---
[place], [place] PROGRESS NOTE NAME: GILBERT BOUDREAUX UNIT #: [id number] ROOM: 512 DOCTOR: ARNAUD HANSON MD BIRTHDATE: [birth year] DOS: 02/28/2017 SUBJECTIVE: She has been noted comfortable at this time. Plan for paracentesis today because of the recurrence of the ascites. She has not been noted any symptoms of acute shortness of breath. Mild shortness of breath was noted with exertion. She denies any chest pain. She has been completely weaned off the oxygen supplementation. OBJECTIVE: VITAL SIGNS: Normal temperature, respiratory rate 18, heart rate of 83, blood pressure 113/54 with a normal temperature. HEENT: Showed no acute change. NECK: Supple. CARDIOVASCULAR: S1, S2 is audible. LUNGS: The patient was noted without any crackles or wheezing. Decreased breath sounds are noted in the lower lungs bilaterally, more on the left than the right side. ABDOMEN: With ascites. EXTREMITIES: Mild edema. LABORATORY DATA: CBC this morning, WBC count 4.7, hemoglobin 8.5, hematocrit 27.0, platelet count 236,000. The BMP on 02/28/2017, BUN and creatinine was normal. Potassium 3.1. IMPRESSION: 1. The patient with a mass, which was noted connected to the heart in the right middle lobe. Large in size, more than 6 cm noted on the chest x-ray was confirmed with the CT scan. 2. Bilateral pleural fluid noted, greater on the left than the right side. 3. Hypokalemia secondary to the diuretic therapy. Acute cirrhosis of the liver. PLAN OF MANAGEMENT: At this time, further thoracentesis will be deferred for the patient. The patient will be continued to be treated medically. Supplementation of potassium. Proceed with paracentesis. Outpatient followup for the assessment of the mass and the pleural fluid would be done. Other supportive therapy, plan of management and care. Usual treatment, all other plan of care. [place], [place] PROGRESS NOTE NAME: GILBERT BOUDREAUX UNIT #: [id number] ROOM: 512 DOCTOR: ARNAUD HANSON MD BIRTHDATE: [birth year] ARNAUD BREWER MD CM:PNTRANS [phone] ARNAUD ESPAÑA MD 02/28/17 1437 interface
[2017-02-25 16:47] VITALS: BP 117/59
[2017-02-25] MEDS ORDERED: POTASSIUM CHLOR8 ME1 PO (16:48)
[2017-02-25] MEDS ORDERED: LOSARTAN-HCTZ1 EACH PO (16:48)
[2017-02-25] MEDS ORDERED: FUROSEMIDE20 M1 PO (16:49)
[2017-02-25 17:15] LABS: BASO # 0.1 10*3/uL (0.0-0.1); BASO % 1.2 % (0.0-1.0); EOS # 0.2 10*3/uL (0.0-0.4); EOS % 3.8 % (1.0-4.0); HEMATOCRIT 28.1 % (37.0-47.0); HEMOGLOBIN 8.7 g/dl (12.0-16.0); LYMPH # 1.9 10*3/uL (1.3-4.4); LYMPH % 37.4 % (27.0-41.0); MEAN CELL VOLUME 88.1 fl (81.0-99.0); MEAN CORPUSCULAR HGB 27.3 pg (27.0-31.0); MEAN PLATELET VOLUME 10.3 fl (9.6-12.3); MONO # 0.6 10*3/uL (0.1-1.0); MONO % 12.3 % (3.0-9.0); NEUT # 2.2 10*3/uL (2.3-7.9); NEUT % 45.1 % (47.0-73.0); PLATELET COUNT AUTOMATED 238 10*3/uL (130-400); RED BLOOD COUNT 3.19 10*6/uL (4.10-5.10); RED CELL DISTRI WIDTH 16.7 % (0-14.5)
[2017-02-25 17:24] LABS: ACT PARTIAL THROMBO TIME 27.8 SECONDS (20.8-31.5); INTERNATIONAL NORM RATIO 1.1 (2.0-3.5)
[2017-02-25 17:30] LABS: ALBUMIN 2.6 gm/dl (3.1-4.5); ALKALINE PHOSPHATASE 223 U/L (45-117); BUN 12 mg/dl (7-24); CHLORIDE 109 mmol/L (98-107); CREATININE 0.72 mg/dL (0.55-1.02); POTASSIUM 3.4 mmol/L (3.5-5.1); SGOT/AST 70 IU/L (3-35); SGPT/ALT 43 U/L (12-78); SODIUM 142 mmol/L (136-145); TOTAL PROTEIN 7.1 gm/dL (6.4-8.2)
[2017-02-25 17:47] VITALS: BP 118/56
[2017-02-25 18:07] LABS: TROPONIN I < 0.015 ng/ml (<0.045)
[2017-02-25 18:53] LABS: BILIRUBIN NEGATIVE (NEGATIVE); BLOOD NEGATIVE (NEGATIVE); CLARITY CLEAR (CLEAR); COLOR YELLOW (YELLOW); GLUCOSE NEGATIVE (NEGATIVE); KETONE NEGATIVE (NEGATIVE); LEUKO ESTERASE 1+ (NEGATIVE); NITRITE NEGATIVE (NEGATIVE); PH 5.5 (5.0-9.0); SPECIFIC GRAVITY <= 1.005 (1.005-1.030); UROBILINOGEN 0.2 E.U./dl (0.2-1.0)
[2017-02-25 19:02] LABS: BACTERIA 1+; EPITHELIAL CELLS 0-2
[2017-02-25 19:50] VITALS: BP 128/54
--- NOTE | 2017-02-25 19:57 | NUR ---
RPEORT HAS BEEN GIVEN. BED NUMBER WAS CHANGED FROM 504 TO 512. ALSO ROOM IS NOT CLEANED OR READY FOR PATIENT.
[2017-02-25 20:20] VITALS: BP 128/54
--- NOTE | 2017-02-25 20:20 | NUR ---
A 76, admitted to 5E, under the services of CHENCHO Ortiz DO with a diagnosis of PLEURAL EFFUSION WITH HEPATIC DISORDER, DYSPNEA ON EXERTION, CIRRHOSIS/ASCITES. Chief complaint is SOB. Patient arrived via bed from ER. Monitor applied. Initial assessment completed. Vital signs taken and recorded. CHENCHO ORTIZ DO notified of admission to the unit. Orders received. See assessment for past medical history, medications and allergies. Patient and/or family oriented to unit. visitation policy reviewed. Clothing/patient valuable form completed. MAY PIERRE
--- NOTE | 2017-02-25 21:15 | NUR ---
DR. STAFFORD AND DR. BREWER NOTIFIED OF CONSULTS. NEW ORDERS NOTED FROM DR. STAFFORD.
[2017-02-26] VITALS: BP 100/49
[2017-02-26 04:00] VITALS: BP 118/51
--- NOTE | 2017-02-26 06:11 | NUR ---
DR. ALVARADO NOTIFIED PATIENT'S MED REQ IS UP TO DATE.
[2017-02-26 06:30] LABS: BASO # 0.1 10*3/uL (0.0-0.1); BASO % 1.4 % (0.0-1.0); EOS # 0.2 10*3/uL (0.0-0.4); EOS % 4.5 % (1.0-4.0); HEMATOCRIT 24.1 % (37.0-47.0); HEMOGLOBIN 7.7 g/dl (12.0-16.0); LYMPH # 1.7 10*3/uL (1.3-4.4); LYMPH % 39.1 % (27.0-41.0); MEAN CELL VOLUME 86.1 fl (81.0-99.0); MEAN CORPUSCULAR HGB 27.5 pg (27.0-31.0); MEAN PLATELET VOLUME 10.6 fl (9.6-12.3); MONO # 0.6 10*3/uL (0.1-1.0); MONO % 14.7 % (3.0-9.0); NEUT # 1.7 10*3/uL (2.3-7.9); NEUT % 40.1 % (47.0-73.0); PLATELET COUNT AUTOMATED 207 10*3/uL (130-400); RED CELL DISTRI WIDTH 16.8 % (0-14.5); WHITE BLOOD COUNT 4.2 10*3/uL (4.8-10.8)
[2017-02-26 06:43] LABS: ALBUMIN 2.2 gm/dl (3.1-4.5); ALKALINE PHOSPHATASE 180 U/L (45-117); BUN 10 mg/dl (7-24); CHLORIDE 112 mmol/L (98-107); CHOLESTEROL 114 mg/dL (<200); CREATININE 0.64 mg/dL (0.55-1.02); FREE T4 1.74 ng/dl (0.76-1.46); HDL CHOLESTEROL 40 mg/dl (40-60); LDL CHOLESTEROL 67 mg/dL (9-159); PHOSPHOROUS 2.9 mg/dL (2.5-4.9); POTASSIUM 3.9 mmol/L (3.5-5.1); SGOT/AST 58 IU/L (3-35); SGPT/ALT 36 U/L (12-78); SODIUM 143 mmol/L (136-145); TOTAL PROTEIN 6.1 gm/dL (6.4-8.2); TRIGLYCERIDES 36 mg/dl (<150); VLDL CHOLESTEROL 7 mg/dL (6-40)
[2017-02-26 07:02] LABS: INTERNATIONAL NORM RATIO 1.2 (2.0-3.5)
--- NOTE | 2017-02-26 07:40 | NUR ---
Shift chart check completed.
[2017-02-26 08:00] VITALS: BP 126/54
[2017-02-26 08:10] VITALS: BP 132/86
--- NOTE | 2017-02-26 09:00 | NUR ---
Test Borer in to talk to patient. Patient states lives at home with alone. There are few steps in the home. Physician: brianne Pharmacy: [facility] health services: none Patient's level of ADLs: INDEPENDENT Patient has working utilities: all working DME: none Follow-up physician's appointment after d/c: will be made by hospitalist nurse director upon discharge Does patient want to access PORTAL?: no Discharge plan discussed with patient, patient states she lives at home alone, son lives near and visits and helps on a daily basis, patient states she gets around fine, patient states she will be going back home when able. discussed with her VNA and she states she doesn't need any at this time. JEWEL COSTA
[2017-02-26 14:06] LABS: BODY FLUID WBC 73 /uL
[2017-02-26 14:48] LABS: BF LYMPHOCYTES 20 %; BF MACROPHAGES 71 %; BF MESOTHELIALS 4 %; BF NEUTROPHILS 5 %
[2017-02-26 16:00] VITALS: BP 132/60
--- NOTE | 2017-02-26 19:20 | NUR ---
PATIENT MEDICATED WITH IVP MORPHINE FOR PAIN AND CRAMPING IN HER LEGS RATED 8/10
[2017-02-26 20:22] VITALS: BP 105/51
--- NOTE | 2017-02-26 22:03 | NUR ---
PATIENT MEDICATED WITH NORCO FOR COMPLAINTS OF LEG CRAMPS. LYING IN BED CRYING WITH PAIN. WILL MONITOR FOR EFFECTIVENESS. CALL LIGHT IN REACH.
[2017-02-27] VITALS: BP 106/50
--- NOTE | 2017-02-27 | NUR ---
NORCO EFFECTIVE AT THIS TIME. PATIENT SAID IT FINALLY QUIT HURTING. NO SIGNS OR SYMPTOMS OF DISTRESS AT THIS TIME. WILL CONTINUE TO MONITOR. CALL LIGHT IN REACH.
[2017-02-27 07:03] LABS: BASO # 0.1 10*3/uL (0.0-0.1); EOS # 0.2 10*3/uL (0.0-0.4); EOS % 4.2 % (1.0-4.0); HEMATOCRIT 25.9 % (37.0-47.0); HEMOGLOBIN 8.2 g/dl (12.0-16.0); LYMPH # 2.1 10*3/uL (1.3-4.4); LYMPH % 42.2 % (27.0-41.0); MEAN CELL VOLUME 85.8 fl (81.0-99.0); MEAN CORPUSCULAR HGB 27.2 pg (27.0-31.0); MEAN CORPUSCULAR HGB CONC 31.7 g/dl (33.0-37.0); MEAN PLATELET VOLUME 10.5 fl (9.6-12.3); MONO # 0.7 10*3/uL (0.1-1.0); NEUT # 1.9 10*3/uL (2.3-7.9); NEUT % 38.4 % (47.0-73.0); PLATELET COUNT AUTOMATED 218 10*3/uL (130-400); RED BLOOD COUNT 3.02 10*6/uL (4.10-5.10); RED CELL DISTRI WIDTH 17.2 % (0-14.5)
[2017-02-27 07:33] LABS: CHLORIDE 105 mmol/L (98-107); POTASSIUM 3.3 mmol/L (3.5-5.1); SODIUM 138 mmol/L (136-145)
[2017-02-27 07:39] LABS: BUN 11 mg/dl (7-24); CREATININE 0.74 mg/dL (0.55-1.02)
[2017-02-27 08:00] VITALS: BP 107/50
[2017-02-27 12:00] VITALS: BP 102/46
--- NOTE | 2017-02-27 16:11 | NUR ---
SPOKE WITH DR BREWER. HE STATED HE PROBABLY WON'T DO THE THORACENTESIS TOMORROW. HE STATED IT IS MORE IMPORTANT THAT THE PATIENT HAVE A PARACENTESIS. HE STATED HE WILL SEE HER TOMORROW.
[2017-02-27 16:39] VITALS: BP 104/48
[2017-02-27 20:08] VITALS: BP 101/48
[2017-02-28] VITALS: BP 95/45
--- NOTE | 2017-02-28 02:38 | NUR ---
PATIENT RESTING IN BED WITH EYES CLOSED. NO SIGNS OR SYMPTOMS OF DISTRESS NOTED. AROUSES TO VERBAL STIMULI. NO COMPLAINTS OF PAIN OR DISCOMFORT VOICED. WILL CONTINUE TO MONITOR. CALL LIGHT IN REACH.
[2017-02-28 07:09] LABS: BASO # 0.1 10*3/uL (0.0-0.1); BASO % 1.1 % (0.0-1.0); EOS # 0.2 10*3/uL (0.0-0.4); EOS % 4.3 % (1.0-4.0); HEMOGLOBIN 8.5 g/dl (12.0-16.0); LYMPH # 1.8 10*3/uL (1.3-4.4); LYMPH % 38.7 % (27.0-41.0); MEAN CELL VOLUME 85.7 fl (81.0-99.0); MEAN CORPUSCULAR HGB CONC 31.5 g/dl (33.0-37.0); MEAN PLATELET VOLUME 11.1 fl (9.6-12.3); MONO # 0.5 10*3/uL (0.1-1.0); MONO % 10.2 % (3.0-9.0); NEUT # 2.1 10*3/uL (2.3-7.9); NEUT % 45.5 % (47.0-73.0); PLATELET COUNT AUTOMATED 236 10*3/uL (130-400); RED BLOOD COUNT 3.15 10*6/uL (4.10-5.10); RED CELL DISTRI WIDTH 17.1 % (0-14.5); WHITE BLOOD COUNT 4.7 10*3/uL (4.8-10.8)
[2017-02-28 07:22] LABS: BUN 13 mg/dl (7-24); CHLORIDE 101 mmol/L (98-107); CREATININE 0.73 mg/dL (0.55-1.02); POTASSIUM 3.1 mmol/L (3.5-5.1); SODIUM 137 mmol/L (136-145)
[2017-02-28 08:00] VITALS: BP 113/54
--- NOTE | 2017-02-28 11:00 | NUR ---
PATIENT OFF FLOOR TO ULTRASOUND FOR PARACENTESIS.
--- NOTE | 2017-02-28 11:24 | NUR ---
PT BACK TO FLOOR. PARACENTESIS WAS NOT COMPLETED DUE TO NOT ENOUGH ASCITES PRESENT. REPORT RECEIVED FROM NAHOMI IN ULTRASOUND.
--- NOTE | 2017-02-28 11:28 | NUR ---
DR BALL CALLED TO REPORT PARACENTESIS WAS NOT COMPLETED DUE TO TO SMALL AMOUNT OF ASCITES.
[2017-02-28] MEDS ORDERED: CIPRO500 MG PO (11:52)
[2017-02-28 12:00] VITALS: BP 98/50
--- NOTE | 2017-02-28 14:19 | NUR ---
Discharge instructions reviewed with patient/family. Patient receptive and verbalizes understanding. Follow-up care arranged. Written instructions given to patient/family. TEREZA GAMBINO
== END 2017-02-28 14:12 | disposition home or self-care (01) | DRG 432 ==
LOC: ED 16:26 → 5E 19:08 → EDHOLD 19:08 → 5E 19:30
PROVIDERS: Emergency Medicine; Family Medicine; Student in an Organized Health Care Education/Training Program; ADMIT Emergency Medicine
PROC: 0W9G3ZZ Drainage of Peritoneal Cavity, Percutaneous Approach (ICD-10-PCS; principal; 2017-02-26)
DX: K74.60 Unspecified cirrhosis of liver (principal); E43 Unspecified severe protein-calorie malnutrition; J91.8 Pleural effusion in other conditions classified elsewhere; E87.8 Other disorders of electrolyte and fluid balance, not elsewhere classified; I48.0 Paroxysmal atrial fibrillation; R06.09 Other forms of dyspnea; E72.20 Disorder of urea cycle metabolism, unspecified; R18.8 Other ascites; I85.10 Secondary esophageal varices without bleeding; Z68.23 Body mass index [BMI] 23.0-23.9, adult; D64.9 Anemia, unspecified; I25.10 Atherosclerotic heart disease of native coronary artery without angina pectoris; I10 Essential (primary) hypertension; E87.6 Hypokalemia; F41.9 Anxiety disorder, unspecified; K75.81 Nonalcoholic steatohepatitis (NASH); T50.2X5A Adverse effect of carbonic-anhydrase inhibitors, benzothiadiazides and other diuretics, initial encounter; D72.819 Decreased white blood cell count, unspecified; Z82.49 Family history of ischemic heart disease and other diseases of the circulatory system; Z98.49 Cataract extraction status, unspecified eye; Z90.710 Acquired absence of both cervix and uterus; Z79.899 Other long term (current) drug therapy; Z88.8 Allergy status to other drugs, medicaments and biological substances; Y92.89 Other specified places as the place of occurrence of the external cause

== ENCOUNTER 2017-05-10 08:52 | Inpatient (IN) | payer MEDICARE ==
[~2017-05-10] VITALS: Ht 157.4 cm; Wt 58.2 kg
--- NOTE | ~2017-05-10 | PR ---
[place], [place] PROGRESS NOTE NAME: GILBERT BOUDREAUX UNIT #: [id number] ROOM: 419 DOCTOR: RODNEY STAFFORD MD BIRTHDATE: [birth year] DOS: 05/15/2017 CHIEF COMPLAINT: A 77-year-old patient who has presented with ascites, anemia, drop in H and H, status post paracentesis, status post endoscopic evaluation and finding of hiatal hernia, esophageal varicosities, status post previous band ligation, not at this session, and gastritis, abnormal liver function tests. PAST MEDICAL HISTORY: Also associated with systemic hypertension, hypercholesterolemia, abnormal liver function tests, celiac disease, and atrial fibrillation. PAST SURGICAL HISTORY: Hysterectomy. REVIEW OF SYSTEMS: Today: HEENT: Denies double vision or blurred vision. RESPIRATORY: Denies acute shortness of breath. CARDIOVASCULAR: Denies acute chest pain. DIGESTIVE SYSTEM: No hematemesis, no hematochezia. PHYSICAL EXAMINATION: VITAL SIGNS: Frail patient. HEENT: Head normocephalic, nontraumatic. Mouth and buccal mucosa benign. NECK: Supple. No thyromegaly, no cervical lymphadenopathy. CHEST: Symmetric anatomy. LUNGS: Few scattered rhonchi. HEART: Atrial fibrillation with moderate ventricular response. ABDOMEN: Obese and presence of ascites fluid. EXTREMITIES: Trace pedal edema. NEUROLOGIC: Alert and oriented. She is not encephalopathic. LABORATORY DATA: Labs reviewed. Records reviewed. Most recent lab data shows sodium of 126. Liver function tests were identified, SGOT elevation of 60. CBC hemoglobin today is 7.8 and haematocrit 22.4 status post 2 units transfusion. Platelets remained about 230. Antral biopsy results, no H. pylori was noticed consistent with gastritis. Ultrasound and therapeutic paracentesis data is reviewed. PLAN AND DISCUSSION: Supportive management, beta blockers, and management of electrolyte imbalance and cirrhosis complications. [place], [place] PROGRESS NOTE NAME: GILBERT BOUDREAUX UNIT #: [id number] ROOM: 419 DOCTOR: RODNEY STAFFORD MD BIRTHDATE: [birth year] RODNEY STAFFORD MD CM:PNTRANS [phone] RODNEY STAFFORD MD 05/28/17 0870 interface
--- NOTE | ~2017-05-10 | PR ---
[place], [place] [facility]GRESS NOTE [id number] UN[facility] #: [id number] ROOM: [place] [address] DOCTOR: DANIELLA ESPAÑA MD,ARNAUD BIRTHDATE: [birth year] DOS: 05/12/2017 PULMONARY PROGRESS NOTE SUBJECTIVE: The patient had been noted with hypotension yesterday, which did not respond to the conservative treatment. She was given intravenous fluid bolus, later started on Levophed and transferred to Intensive Care Unit. The chest tube remains in place, about 600 mL of pleural fluid drainage was noted in the last 24 hours. The patient has not been noted any symptoms of hemoptysis. There were no symptoms of chest pain reported by the patient. The chest pain related to chest tube is controlled with use of Dilaudid as needed. Denies symptoms of nausea, vomiting, or abdominal pain. Denies any dizziness or headache. She was noted [id number] abdominal distention related to ascites, was not noted significant recurrence. Remaining systems were reviewed with the patient and they were noted all normal. PHYSICAL EXAMINATION: VITAL SIGNS: The vital signs of the patient showed blood pressure 135/52-102/49, the lowest blood pressure noted yesterday as 87/46. The respiratory rate was recorded as 16, heart rate is 77. Pulse oxygen saturation of the patient was noted as 95% on 2 liters nasal cannula. HEENT: Examination shows head was atraumatic. Eyes nonicterus. NECK: Supple. CARDIOVASCULAR: S1, S2 is audible. LUNGS: Noted with significant improvement in aeration of the left lung. The right lung was noted clear. ABDOMEN: Soft with [id number]-ta-[id number] ascites. Nontender. Bowel sounds present. EXTREMITIES: Without any edema. Loss of muscle mass, which is chronic. VISIBLE SKIN: No lesions or rashes. MUSCULOSKELETAL: Without acute deformities. CENTRAL NERVOUS SYSTEM: Intact. LABORATORY DATA: CBC of the patient this morning, WBC count 14.2, hemoglobin 7.6, and hematocrit 23.4. The BMP of the patient this morning, BUN 13, creatinine 1.05, glucose 123, and sodium 129. Blood culture, no bacterial growth from the 05/10/2017. The chest x-ray of the patient that was done this morning was reviewed shows marked improvement in the aeration of the lungs with a tiny left pneumothorax cannot be excluded. Chest tube remains in place in the left lower portion of the chest. Pleural fluid, pH was noted 7.50 yesterday. The cell count differential and chemistry of the patient noted WBC count 191,000. Differential including 54% lymphocytes and 37% macrophages. Glucose, total protein, LDH, clusters, and albumin all noted consistent with findings of transudative effusion. IMPRESSION: 1. Transudative pleural fluid on left side of the patient most likely related to ascites, hepatic issue would be very likely. The pleural fluid drainage of the patient has been noted gradually decreasing with improvement in aeration of the lung. [place], [place] PROGRESS NOTE NAME: GILBERT BOUDREAUX UNIT #: [id number] ROOM: [place] [address] DOCTOR: DANIELLA ESPAÑA MD,ARNAUD BIRTHDATE: [birth year] 2. The patient with hypotension, most likely intravascular volume depletion would be the likely reason. Currently responding to the treatment at the present time. 3. History of advanced liver cirrhosis. 4. Right middle lung mass of the patient as well. PLAN OF MANAGEMENT: Continue chest tube drainage at this time. Monitor pleural fluid drainage. Continue vasopressor with titration and discontinue vasopressor to maintain a mean arterial pressure of 65 or greater. Continuation other supportive therapy, plan of management, and care plan. Usual treatment, all other supportive, plan of management, and care plan. Chest tube at this time remains in place and does not require to be removed or any further intervention to be done. ARNAUD BREWER MD CM:PNTRANS [phone] ARNAUD ESPAÑA MD 05/13/17 0047 interface
--- NOTE | ~2017-05-10 | PR ---
[place], [place] PROGRESS NOTE NAME: GILBERT BOUDREAUX UNIT #: [id number] ROOM: 419 DOCTOR: DANIELLA ESPAÑA MD,ARNAUD BIRTHDATE: [birth year] DOS: 05/22/2017 SUBJECTIVE: She has been noted comfortable at this time without any acute distress. Denies symptoms of abdominal pain, noted with ascites of the abdomen secondary to cirrhosis of the liver. The cough has been noted decreased from yesterday. OBJECTIVE: VITAL SIGNS: For the patient which were recorded showed the temperature noted as 99.5 degree Fahrenheit, respiratory rate 16, heart rate 83, blood pressure 102/60. The pulse oxygen saturation was noted 95% on 3 liters nasal cannula. HEENT: Shows head was atraumatic. Eyes nonicterus. NECK: Supple. CARDIOVASCULAR: S1, S2 audible. LUNGS: Decreased breath sounds in lower portion of the lungs without any wheeze or crackles heard. ABDOMEN: Soft, nontender. EXTREMITIES: Without any acute edema. IMPRESSION: 1. The patient was encouraged noted stable at the present time with acute streptococcal pneumonia and tracheobronchitis. 2. Ascites liver cirrhosis. PLAN OF TREATMENT: No changes in the plan for this patient at this time, continue current plan of management. Consider paracentesis for enlarging ascitic fluid. ARNAUD BREWER MD CM:PNTRANS [phone] ARNAUD ESPAÑA MD 05/30/17 0838 interface
--- NOTE | ~2017-05-10 | PR ---
[place], [place] PROGRESS NOTE NAME: GILBERT BOUDREAUX UNIT #: [id number] ROOM: [place] [address] DOCTOR: DANIELLA ESPAÑA MD,ARNAUD BIRTHDATE: [birth year] DOS: 05/15/2017 SUBJECTIVE: The patient noted comfortable at this time. Chest tube is in place. Still noted large volume of pleural fluid drainage, remains off vasopressor. Denies symptoms of chest pain. Sitting this morning on the chair. OBJECTIVE: VITAL SIGNS: Normal temperature, respiratory rate 18, heart rate 88, blood pressure 98/58-105/51. Pulse oxygen saturation on 1 liter nasal cannula 99% saturation. HEENT: Examination shows no acute change. NECK: Supple. CARDIOVASCULAR: S1, S2 audible. LUNGS: The patient was noted without any wheeze or crackles present time. Decreased breath sounds in the right lower lung. ABDOMEN: Soft, nontender. IMPRESSION: 1. The patient with resolving pleural fluid progressively with the lung remained expanded. Large volume pleural fluid drainage was still noted from the left pleura. The drainage of pleural fluid noted 510 mL. 2. Oxdnx-bv-loaxjqhi right pleural fluid was also noted. PLAN OF TREATMENT: Chemical pleurodesis to be done tomorrow morning. The procedure was discussed with the patient and the son in detail today. The procedure will be done tomorrow morning at the bedside. ARNAUD BREWER MD CM:PNTRANS [phone] ARNAUD ESPAÑA MD 05/15/17 1731 interface
--- NOTE | ~2017-05-10 | PR ---
[place], [place] PROGRESS NOTE NAME: GILBERT BOUDREAUX UNIT #: [id number] ROOM: 419 DOCTOR: ARNAUD AHNSON MD BIRTHDATE: [birth year] DOS: 05/21/2017 SUBJECTIVE: The patient noted comfortable at this time, resting in the bed. The coughing has been noted to increase as discussed with the patient. There was no abdominal pain. Denies symptoms of nausea, vomiting or diarrhea. Denies symptoms of hemoptysis. The patient was continued on intravenous Levaquin as it was ordered. General weakness and fatigue was reported. Abdominal pain sees to be increased. The remaining systems were reviewed, they were noted all negative. OBJECTIVE: VITAL SIGNS: For the patient shows a temperature noted low grade 99.5-99.7 degree Fahrenheit, respiratory rate 16, heart rate 74, blood pressure 161-109/48. Pulse oxygen saturation for the patient was recorded as 92% on room air. HEENT: Examination shows head was atraumatic. Eyes nonicterus. NECK: Supple. CARDIOVASCULAR: S1, S2 is audible. LUNGS: The patient was noted without any wheezing. Scattered crackles of the lung were noted in lungs bilaterally. ABDOMEN: Soft with ascites which has been increasing gradually. Visible skin for the patient noted No lesions or rashes. MUSCULOSKELETAL: Without any acute deformities. SKIN: With icterus. LABORATORY DATA: The urine antigen, the patient with strep pneumonia was noted positive. Legionella was noted as negative. IMPRESSION: 1. The patient who had been currently is suspected with acute pneumonia. The patient with strep pneumonia, responding to the treatment with use of intravenous Levaquin that remains the same. 2. Recurrence of the ascites with history of advanced liver cirrhosis. 3. Status post successful chemical pleurodesis of the left large pleural effusion. PLAN OF MANAGEMENT: Continue antibiotics and monitoring temperature curve. Consider paracentesis to be repeated again for this patient for the recurrence of the ascites. Continuation of bronchodilator treatment therapy, plan of management and care. Additional treatment changes to be made for the patient based on progression of the illness. [place], [place] PROGRESS NOTE NAME: GILBERT BOUDREAUX UNIT #: [id number] ROOM: 419 DOCTOR: ARNAUD HANSON MD BIRTHDATE: [birth year] ARNAUD BREWER MD CM:PNMANAN [phone] ARNAUD ESPAÑA MD 05/30/17 0835 interface
--- NOTE | ~2017-05-10 | PR ---
[place], [place] PROGRESS NOTE [id number] #: [id number] ROOM: [place] [address] DOCTOR: DANIELLA ESPAÑA MD,ARNAUD BIRTHDATE: [birth year] DOS: 05/13/2017 PULMONARY PROGRESS NOTE SUBJECTIVE: The patient has been noted progressive anemia. GI assessment for the patient has been ordered. The patient was assessed by Dr. Cheek with plan of getting an EGD done today. Chest tube remains in place in the left hemithorax. The drainage of the pleural fluid was noted in the last 24 hours as 775 mL of pleural fluid drainage. The patient has not been noted any symptoms of hemodynamic instability. There were no symptoms of chest pain. Denies any abdominal pain. Intermittent mild hypotension was still noted. OBJECTIVE: VITAL SIGNS: Showed blood pressure 94/46 to 102/64, respiratory rate of the patient recorded as 14-12, heart rate of 75-83. Temperature of the patient noted as normal. HEENT: Showed head was atraumatic, eyes nonicterus. NECK: Supple. CARDIOVASCULAR: S1, S2 is audible. LUNGS: The patient was noted without any wheezing or crackles. Breaths are noted mildly decreased in the lower portion of the lungs bilaterally. ABDOMEN: Soft, nontender. EXTREMITIES: Without any acute edema. LABORATORY DATA: The patient's chest x-ray done this morning was reviewed, lungs remained fully expanded bilaterally, right middle lung mass as previous noted with small pleural fluid on the right side was also seen with today's chest x-ray. The echocardiogram for the patient that was completed today was reviewed and assessed by Dr. Lake on 05/13/2017, findings reported as normal left ventricular function with diastolic dysfunction. CBC of the patient this morning: Hemoglobin 6.8, hematocrit 20.5, platelet count normal, WBC count normal. BMP: BUN 38, creatinine 1.29, glucose 101, sodium 125. Blood culture, no bacterial growth. IMPRESSION: 1. The patient with persistent hypotension still noted, large volume of pleural fluid drainage was noted from the left pleural space, 750 mL of pleural fluid noted. 2. Persistent hypotension, on vasopressor therapy. 3. Advanced liver cirrhosis as well. Transudative effusion for the patient was noted from the chest tube, most likely related to the past liver disease, most likely the reason, or congestive heart failure combination. 4. Right middle lobe mass. 5. Abnormal ground glass opacity noted with abnormal SUV uptake in the right upper lobe as well. PLAN OF MANAGEMENT: Continue the chest tube with drainage at this time. Continue with vasopressor therapy, bronchodilators, and oxygen supplementation. Repeat chest x-ray in the morning for reassessment. Other supportive plan of therapy and care plan as well. Usual treatment with additional treatment [place], [place] PROGRESS NOTE NAME: GILBERT BOUDREAUX UNIT #: [id number] ROOM: [place] [address] DOCTOR: DANIELLA ESPAÑA MD,ARNAUD BIRTHDATE: [birth year] changes to be made based on the progression of the illness. ARNAUD BREWER MD CM:PNTRANS [phone] ARNAUD ESPAÑA MD 05/14/17 0159 interface
--- NOTE | ~2017-05-10 | PROC NOTE ---
[place], [place] PROCEDURE NOTE NAME: GILBERT BOUDREAUX UNIT #: [id number] ROOM: 419 DOCTOR: DANIELLA ESPAÑA MD,ARNAUD BIRTHDATE: [birth year] DOS: 05/16/2017 PROCEDURE: Pleurodesis on the left pleural space. PREOPERATIVE DIAGNOSIS: The patient with large volume pleural fluid drained from the left pleural space. A transudative effusion. POSTOPERATIVE DIAGNOSIS: Pleurodesis was done with talc slurry. PROCEDURE DESCRIPTION: Informed consent obtained from the patient. The patient placed in the right lateral body position. The chest tube was clamped. Talc slurry, which was made with 5 grams of talc with 20 mL of 2% lidocaine remaining saline total volume of 50 mL injected through the chest tube for the patient without difficulty. Additional 100 mL of normal saline was flushed as well. The pain management will be continued. No complications noted immediately after the procedure. The chest tube remained clamped for 2 hours and then will be relieved to suction. ARNAUD BREWER MD CM:PROCNOTE:PROCEDURE NOTE [id number] ARNAUD ESPAÑA MD
--- NOTE | ~2017-05-10 | CON ---
[place], [place] REPORT OF CONSULTATION NAME: GILBERT BOUDREAUX UNIT #: [id number] ROOM: 411 DOCTOR: DANIELLA ESPAÑA MDARNAUD BIRTHDATE: [birth year] DOS: 05/11/2017 REASON FOR CONSULTATION: Assess the patient for large pleural fluid for the patient in the left side. HISTORY OF PRESENT ILLNESS: A 77-year-old white female patient known to me, was seen in the office prior to the hospitalization. The patient recommended hospitalization as she was seen in the office after follow with her previous known right middle lobe mass. She has been noted shortness of breath occurring minimal exertion, progressive worsening of shortness breath were reported. She was reported as symptoms of nonproductive cough. Denies symptoms of chest pain. She was also noted progressive increase in the abdomen secondary to the ascites. She has a recent PET scan rather done which was completed in [facility] for the patient on 05/06/2017, which shows evidence of a large pleural fluid noted as a new finding on the left side. The mass lesion in the right middle lobe does not show any abnormality; however, there is ground glass opacities identified for the area about 4-5 cm in the right upper lobe, which was noted with mild increase of SUV of 5.7. The patient denies any symptoms of wheezing. REVIEW OF SYSTEMS: CONSTITUTIONAL: General weakness and fatigue was noted for this patient. EYES: Denies burning, redness, tenderness. EAR, NOSE, THROAT SYMPTOMS: Denies sore throat, hoarseness, otalgia, postnasal drainage or epistaxis. CARDIOVASCULAR: Time done pain, edema, pain of the lower extremities. GASTROINTESTINAL SYMPTOMS: The patient was noted with reduction of the abdominal distention after paracentesis done yesterday. There were no abdominal pain, hematemesis, nausea, vomiting, diarrhea or hematochezia reported. Denies symptoms of dysphagia. GENITOURINARY SYMPTOMS: Dysuria, suprapubic pain, hematuria. MUSCULOSKELETAL: Denies acute joint pain, redness, or tenderness. SKIN: Denies lesions or rashes. CENTRAL NERVOUS SYSTEM: General weakness and fatigue. There were no focal deficits reported for the patient or tingling sensation of the extremities. Remaining systems were reviewed. The patient, they were noted all negative. PAST MEDICAL HISTORY: 1. History of liver cirrhosis. 2. Hypercholesterolemia. 3. Anemia of chronic disease. 4. Past GI bleeding and past gastrointestinal bleeding. 5. History of celiac disease. 6. Atrial fibrillation. 7. Hypercholesterolemia. 8. Essential hypertension. SOCIAL HISTORY: The patient is , lives at home. She denies any alcohol or illicit drug use. Tobacco use for the patient was noted in the past for [place], [place] REPORT OF CONSULTATION NAME: GILBERT BOUDREAUX UNIT #: [id number] ROOM: 411 DOCTOR: ARNAUD HANSON MD BIRTHDATE: [birth year] about a pack of cigarettes per day since teenager, discontinued 30 years ago. FAMILY HISTORY: Father of complication related to colon cancer at the age of 60+ years old. MEDICATIONS: Current administered medication was noted as use of multivitamin, losartan, Lasix, Lovenox for DVT prophylaxis, Protonix, OxyContin and lorazepam. DRUG ALLERGIES: The patient was noted as no known drug allergies. PHYSICAL EXAMINATION: GENERAL: A 77-year-old white female who has been currently lying in the bed without any acute distress, chronic ill-looking, patient appeared to be malnourished and pallor. Height of the patient recorded by the nursing staff on the current admission 5 feet 2 inches, weight of 151, BMI 27.5. VITAL SIGNS: Normal temperature, respiratory 18-19, heart rate of 103-95, blood pressure 99/53 and 118/68. Pulse oxygen saturation on room air 97% saturation. HEENT: Examination shows head was atraumatic. Eyes nonicterus. NECK: Supple. Sunken eyes. CARDIOVASCULAR SYSTEM: S1, S2 audible. LUNGS: The patient noted with absent breath sounds noted middle lower portion of the left lung in the right lower lung base. ABDOMEN: Soft with ascites, decreased. There was no tenderness. Bowel sounds present. EXTREMITIES: Without any edema, clubbing, cyanosis, loss of muscle mass. VISIBLE SKIN: No lesions or rashes. LABORATORY DATA: CBC of the patient of 05/10/2017, for the patient, WBC count normal, hemoglobin 8.1, hematocrit 25.2, platelet count were normal. Lactic acid 2.1 on admission. PT/INR 1.2. On admission, normal PTT. CMP on admission: BUN 27, creatinine was normal, glucose normal. Sodium 131, total bilirubin 1.3, AST of 64. Alkaline phosphatase 180 with normal troponin. Albumin 2.3. The followup lactic acid 1.7. Ammonia level 22 yesterday. CMP today for the patient noted normal BUN and creatinine, sodium 133, albumin 2.6. CBC: Hemoglobin 7.8, hematocrit 23.7, platelet count normal. WBC count normal. The abdominal series x-ray of the patient noted persistent right middle lobe mass for the patient has previously known unchanged with a small right pleural fluid, moderate size partially loculated left pleural fluid noted. IMPRESSION: 1. The patient will be currently admitted to the hospital noted with a large progressive left pleural fluid with small right pleural fluid with ascites and advanced liver cirrhosis and liver dysfunction. 2. The patient with chronic loss of muscle mass was also noted. 3. Abnormal LFTs. 4. Edema of the lower extremity secondary to possibility of congestive heart failure. PLAN OF TREATMENT: The patient has been suggested about the chest tube insertion for the drainage of current large pleural fluid and that will be [place], [place] REPORT OF CONSULTATION NAME: GILBERT BOUDREAUX UNIT #: [id number] ROOM: 411 DOCTOR: ARNAUD HANSON MD BIRTHDATE: [birth year] analyzed for the patient for infection and malignancy. Less likely, this caused to be related to any infection. After the drainage of pleural fluid analysis additional change in the treatment will be done. Consider changing the diuretic intervenous for the patient formulation. Paracentesis to be done periodically. The patient to help relieve the discomfort, which will be therapeutic as well. Supportive therapy, plan of management and other care plan. Usual treatment as previously ordered in progress. Supportive care. Thanks for allowing me to participate in the care of this patient. ARNAUD BREWER MD CM:CONSTR:REPORT OF CONSULTATION 1008 05/11/17 1302 interface
--- NOTE | ~2017-05-10 | PROC NOTE ---
[place], [place] PROCEDURE NOTE NAME: GILBERT BOUDREAUX UNIT #: [id number] ROOM: [facility] DOCTOR: DANIELLA ESPAÑA MD,ARNAUD BIRTHDATE: [birth year] DOS: 05/10/2017 CHEMICAL PLEURODESIS NOTE. PREOPERATIVE DIAGNOSIS: The patient with a continued pleural fluid drainage in the left side. POSTOPERATIVE DIAGNOSES: Chemical pleurodesis performed at the bedside without difficulty. PROCEDURE DESCRIPTION: Informed consent obtained for the patient. She was already lying in the right lateral position. The chest tube was clamped. The talc slurry for this patient made with 20 mL of lidocaine. A 5 grams of sterile talc and remaining saline, total of 60 mL volume injected through the chest tube in the left pleural space without difficulty. Additional 100 mL was flushed through the chest tube without any difficulty. The patient was premedicated with morphine sulfate. We will continue the morphine, intermittent use at 2 mg q. 1 hour for the management of any pain. Chest tube remained clamped for 2 hours and then we released to the suction. X-ray will be done in the morning for the patient as well as monitor the pleural fluid drainage for this patient as well. ARNAUD BREWER MD CM:PROCNOTE:PROCEDURE NOTE [id number] ARNAUD ESPAÑA MD
--- NOTE | ~2017-05-10 | EKG ---
[place], [place] ELECTROCARDIOGRAM REPORT NAME: GILBERT BOUDREAUX UNIT #: [id number] ROOM: [place] [address] DOCTOR: DANIELLA ESPAÑA MD,ARNAUD BIRTHDATE: [birth year] DOS: 05/10/2017 The electrocardiogram done for the patient on 05/10/2017 at 9:26 a.m. Shows atrial flutter for the patient with 3 x 1 range. The heart rate patient noted 100 beats per minute. Prolonged QTC interval for the patient was also noted. There were no changes of acute ischemia. Nonspecific ST-T changes noted. ARNAUD BREWER MD CM:EKGRPT:ELECTROCARDIOGRAM REPORT [id number] ARNAUD ESPAÑA MD
--- NOTE | ~2017-05-10 | PR ---
[place], [place] PROGRESS NOTE [id number] UNIT #: [id number] ROOM: [place] [address] DOCTOR: DANIELLA ESPAÑA MD,ARNAUD BIRTHDATE: [birth year] DOS: 05/14/2017 SUBJECTIVE: The patient was noted without any acute new respiratory complaints at the present time. Chest tube remains in place, still noted a significant amount of pleural fluid drainage. She was noted with anemia for this patient and was requiring blood transfusion. The patient underwent EGD yesterday as well, completed by Dr. Cheek. EGD for the patient described evidence of hiatal hernia and gastritis, esophageal ulcers and gastroesophageal reflux. The patient denies any symptoms of nausea, vomiting, diarrhea, or abdominal pain. Has now been noted with significant further increase of the abdomen for the patient at this time. Denies any symptoms of hematemesis, melena, or hematuria. General weakness, fatigue was still reported. Hypertension, the patient was noted, improved and the patient was weaned off the vasopressors completely. Remaining systems were reviewed. They were noted all negative. OBJECTIVE: VITAL SIGNS: The patient showed normal temperature, respiratory rate 18-14. Heart rate of 75, blood pressure 98/56-100/42. Pulse oxygen saturation of the patient noted on 2 liters cannula, 95% saturation. HEENT: Showed no acute change. NECK: Supple. CARDIOVASCULAR: S1, S2 is audible. LUNGS: The patient noted [id number] decreased breath sounds in the lower portion of the lungs. There were no crackles. ABDOMEN: Soft, nontender. EXTREMITIES: Without any acute edema. GENITOURINARY: Intact. Cranial nerves 2-12 intact. No focal deficit. MUSCULOSKELETAL SYMPTOM: Without any acute deformities. SKIN: No lesions or rashes. LABORATORY DATA: The patient's CBC today: WBC count normal, hemoglobin 6.3, hematocrit 19.0, platelet count was normal at 220,000. The CMP for the patient, which was done today shows BUN 39, creatinine 1.31. Sodium 126. Albumin is 2.1. IMPRESSION: 1. The patient with liver cirrhosis. The patient with a left pleural fluid, transudative effusion, most likely related to that which was still noted significant drainage of pleural fluid. The patient has 390 mL pleural fluid drainage in the last 24 hours. 2. Resolution of the hypotension. 3. Anemia of the patient was also noted status post EGD. PLAN OF TREATMENT: The patient was planned for the blood transfusion to be done today. Continue chest tube to be suctioned for this patient at present time. Chemical pleurodesis will be done tomorrow for this patient at the bedside as the patient noted continued pleural fluid drainage, recurrent pleural fluid would be very likely, if the chest tube removed for the patient without any intervention. Continue other supportive therapy, plan of management and care. [place], [place] PROGRESS NOTE NAME: GILBERT BOUDREAUX UNIT #: [id number] ROOM: [place] [address] DOCTOR: DANIELLA ESPAÑA MD,ARNAUD BIRTHDATE: [birth year] The chest tube for the patient shows continued reexpanded lung on the left side. [id number] right pleural fluid was noted. ARNAUD BREWER MD CM:PNTRANS 1113 [id number] ARNAUD ESPAÑA MD 05/14/17 2324 interface
--- NOTE | ~2017-05-10 | PR ---
[place], [place] PROGRESS NOTE NAME[id number] UNIT #: [id number] ROOM: 419 DOCTOR: DANIELLA ESPAÑA MDARNAUD BIRTHDATE: [birth year] DOS: 05/19/2017 SUBJECTIVE: The patient was seen and examined on 05/19/2017, comfortable, resting. The patient denies any coughing, sputum expectoration, chest or any abdominal pain. The chemical pleurodesis done for patient on the left side previously. She denies symptoms of hemoptysis. Denies any dysuria, suprapubic pain or urinary incontinence. Denies any acute musculoskeletal chest pain. Appetite was noted fair. Remaining systems were reviewed. They were noted all negative. PHYSICAL EXAMINATION: GENERAL: This is a 77-year-old white female, who has been noted to be comfortable at this time without any acute distress. VITAL SIGNS: The patient's vital signs shows a normal temperature, respiratory rate 18, heart rate 83-110, blood pressure of 93/51 to 99/45. Pulse oxygen saturation on 2 liters was 93% saturation. HEENT: Examination shows head was atraumatic. Eyes nonicterus. NECK: Supple. CARDIOVASCULAR: S1, S2 is audible. LUNGS: Decreased breath sounds in the lower lungs bilaterally. There was no wheezing heard. There were no crackles present. ABDOMEN: Soft, nontender. EXTREMITIES: Without any acute edema. LABORATORY DATA: BMP of the patient today shows BUN 28, creatinine 1.10. Remaining electrolytes of the patient, potassium mildly decreased 3.21, sodium 135. CBC: Hemoglobin 7.5, hematocrit 21.9, WBC count normal, and platelet count was normal. Blood cultures, no bacterial growth on 05/17/2017 as well. The patient had a CT scan of the chest that was done without contrast ordered by the primary care attending was personally reviewed from the PACS images shows multiple loculated pleural fluid. However, the lung were noted in general significantly expanded on the left side. A small loculated space noted in the left upper lobe. A moderate-sized pleural fluid was noted. Large volume ascites were still noted, moderate size hiatal hernia for the patient also reported. IMPRESSION: 1. The patient who has been currently noted with successful chemical pleurodesis at this time, noted that the temperature for the patient elevation seem to respond to treatment with broad spectrum intravenous antibiotic. However, the culture of the ascitic fluid was noted negative, ruling out the spontaneous bacterial peritonitis. The blood culture so far reported negative as well. The etiology of fever still remains undetermined on the current culture results. 2. History of advanced liver disease as well with ascites with recent paracentesis for the patient 3 days ago with 3100 mL volume removed. PLAN OF MANAGEMENT: The patient's antibiotics will be de-escalated, discontinuation of the Zosyn and the IV vancomycin because of lack of culture [place], [place] PROGRESS NOTE NAME: GILBERT BOUDREAUX UNIT #: [id number] ROOM: 419 DOCTOR: DANIELLA ESPAÑA MD,ARNAUD BIRTHDATE: [birth year] supporting the use. Continue with the Levaquin. The patient has only antibiotics. Monitor current finding of the patient otherwise noted on the CT scan. A paracentesis may need to be repeated again most likely in the next couple of days. The left-sided changes in the pleural space was noted as expected with the chemical pleurodesis. Right-sided at this time observation for the pleural fluid will be continued. ARNAUD BREWER MD CM:PNMANAN [id number] ARNAUD ESPAÑA MD 05/19/17 1406 interface
--- NOTE | ~2017-05-10 | CON ---
[place], [place] REPORT OF CONSULTATION NAME: GILBERT BOUDREAUX UNIT #: [id number] ROOM: 419 DOCTOR: JD NEUMANNMARYANNE Sierra BIRTHDATE: [birth year] DOS: 05/20/2017 PALLIATIVE CONSULT NOTE ATTENDING PHYSICIAN: Dr. Sofia Suarez HISTORY OF PRESENT ILLNESS: The patient is a 77-year-old female with a past medical history of: 1. Progressive adult failure to thrive and ambulatory dysfunction. The patient was living at home with help from family. 2. End-stage liver disease with nonalcoholic steatohepatitis (DIANA) with large ascites and lower extremity edema as well as pleural effusion. 3. Moderate protein-calorie malnutrition. 4. Chronic diastolic CHF. 5. Portal hypertension related to liver cirrhosis. The patient is presently admitted to [facility] when she was brought over. The patient was brought to the Emergency Department for worsening of shortness of breath and dyspnea on exertion, progressive for about a week. The patient also had fallen at home a few times where she was being helped by her family. The patient had bilateral swelling of her legs. After admission, the patient requested comfort care code status and palliative care only. The patient was found to have large ascites with significant lower extremity edema and pleural effusion. The patient does not want any aggressive treatment and wants to be kept comfortable only and would prefer to go home with hospice. The patient's daughter is present with her in the room. Moderate left pleural effusion and small right pleural effusion, evaluated by Dr. Fagan, the memorial counselor. Large ascites related to portal hypertension and liver cirrhosis with abdominal distention. Moderate constipation, but no signs of any bowel obstruction. No chest pains. No other GI or urinary symptoms. REVIEW OF SYSTEMS: LUNGS: Some increased shortness of breath and dyspnea on exertion. GASTROINTESTINAL: The patient with moderate constipation. CARDIOVASCULAR: No chest pains or palpitations. SOCIAL HISTORY: The patient is very weak, normally lives at home with the help of family. Denies smoking cigarettes, alcohol and drug abuse. FAMILY HISTORY: Noncontributory. PRESENT MEDICATIONS: Benadryl, Protonix, calcium, Zofran and Levaquin. ALLERGIES: No known drug allergies. [place], [place] REPORT OF CONSULTATION NAME: GILBERT BOUDREAUX UNIT #: [id number] ROOM: [facility] DOCTOR: MARYANNE MILES MD BIRTHDATE: [birth year] PHYSICAL EXAMINATION: GENERAL: Alert, oriented x 3, very weak, but in no visible distress. HEENT AND NECK: Extraocular movements are intact. Sclerae are anicteric. Oral mucosa is moist and clean. No obvious facial weakness. Neck is supple without any lymphadenopathy. No thyromegaly. No JVD. No carotid arterial bruits. LUNGS: Clear to auscultation. No wheezing. No rhonchi. CARDIOVASCULAR SYSTEM: Heart rate is regular in rate and rhythm. S1 and S2 normally audible. No significant murmur or any other abnormal cardiac sounds. ABDOMEN: Abdominal distention with large ascites. EXTREMITIES: 2-3+ leg and pedal edema. CENTRAL NERVOUS SYSTEM: Alert and oriented x 3. Cranial nerves II-XII are intact. Speech is normal. The patient is able to move all extremities. Normal muscle strength. Deep tendon reflexes are equal on both sides. Plantars were downgoing. IMPRESSION: 1. The patient with end-stage liver disease and failure and (DIANA) nonalcoholic steatohepatitis with large pleural effusion, portal hypertension, leg edema and pleural effusion. The patient wants to be kept comfortable only and would wish to go home under hospice care. I will recommend hospice consultation. The patient already has family living with her, who helps her at home. The patient can go home with Roxanol 10 mg every hour as needed, Ativan 2 mg every 4 hours oral concentrate as needed. For excessive respiratory secretions, Robinul 1 to 2 mg twice a day can be used for excessive respiratory secretions versus atropine drops p.r.n. 2. Large ascites and pleural effusion. The patient does not want any procedures performed to relieve her of the extra fluid. The patient has end-stage liver disease and liver cirrhosis from nonalcoholic steatohepatitis. 3. Generalized weakness and adult failure to thrive. The patient may require a walker or a wheelchair as recommended by Physical Therapy to help ambulate at home and a hospital bed needs to be arranged. Thank you, Dr. Suarez, for asking me to see the patient. I will follow on as need basis. MARYANNE MILES MD CM:CONSTR:REPORT OF CONSULTATION 1746 05/27/17 1031 interface
--- NOTE | ~2017-05-10 | PR ---
[place], [place] PROGRESS NOTE NAME: GILBERT BOUDREAUX [facility] #: [id number] UNIT #: [id number] ROOM: 419 DOCTOR: DANIELLA ESPAÑA MDARNAUD BIRTHDATE: [birth year] DOS: 05/18/2017 PULMONARY PROGRESS NOTE SUBJECTIVE: She has been noted comfortable at this time, resting on the bed. She denies any symptoms of cough, chest pain or sputum expectoration. Chest tube of the patient was removed yesterday after successful chemical pleurodesis. She has a paracentesis done with 3100 mL of ascitic fluid removed. Cultures of the fluid for the patient was done. She was continued on intravenous antibiotics. The patient reported no abdominal pain. There were no symptoms of hemoptysis or chest pain. Remaining systems were reviewed, they were noted all negative. OBJECTIVE: VITAL SIGNS: Temperature curve was noted completely normal for the patient in the last 24 hours, respiratory rate 18, heart rate 78, blood pressure 91/42 to 81/40. Pulse oxygen saturation of the patient recorded on room air was 94% saturation. HEENT: Showed head was atraumatic, eyes nonicterus. NECK: Supple. CARDIOVASCULAR: S1, S2 audible. LUNGS: The patient was noted without any wheezing or crackles. On the right side, some decreased breath sounds in the right lower lung as previously. Scattered crackles in the left lung. ABDOMEN: Soft, nontender. EXTREMITIES: Without any acute edema. VISIBLE SKIN: Shows no lesions or rashes. MUSCULOSKELETAL: Without any acute deformities. CENTRAL NERVOUS SYSTEM: Intact. LABORATORY DATA AND IMAGING STUDIES: CBC today: WBC count 11,000, hemoglobin 7.5. CMP for the patient: BUN 32, creatinine 1.12. Sodium 132, potassium 3.4. Chest x-ray done today for the patient shows evidence of pleural thickening and patchy infiltration in the left lung for this patient. The right side for this patient noted with elevation of the hemidiaphragm with small pleural effusion. IMPRESSION: 1. The patient with acute hypertension, which has been already treated and resolved with mild hypotension noted at this time and asymptomatic. 2. Temperature of the patient, etiology and source are unknown, currently treated with broad spectrum intravenous antibiotics. 3. Successful chemical pleurodesis for the left pleural fluid was done as well, noted to be successful at this time. PLAN OF MANAGEMENT: Monitor culture of the peritoneal fluid for the final results. De-escalating antibiotics most likely tomorrow. Monitor temperature curve. Monitor the mild hypotension. Usual care and other supportive plan of therapy as in progress. Additional treatment changes will be done for the patient based on the progression of the illness. [place], [place] PROGRESS NOTE NAME: GILBERT BOUDREAUX UNIT #: [id number] ROOM: [facility] DOCTOR: ARNAUD HANSON MD BIRTHDATE: [birth year] ARNAUD BREWER MD CM:PNTRANS [id number] 1021 ARNAUD ESPAÑA MD 05/18/17 1019 interface
--- NOTE | ~2017-05-10 | PROC NOTE ---
[place], [place] PROCEDURE NOTE NAME: GILBERT BOUDREAUX UNIT #: [id number] ROOM: 411 DOCTOR: DANIELLA ESPAÑA MDARNAUD BIRTHDATE: [birth year] DOS: 05/11/2017 PROCEDURE: Chest tube thoracostomy, ultrasound-guided. PREOPERATIVE DIAGNOSIS: The patient has large progressive partially loculated pleural fluid for the patient. POSTOPERATIVE DIAGNOSES: The patient has large progressive partially loculated pleural fluid for the patient. PROCEDURE DESCRIPTION: Informed consent obtained for the patient. She was placed in sitting position. Ultrasound of the chest was personally performed, large pocket of pleural fluid was identified earlier. After that the marking placed, the patient decided to do chest tube insertion in the left lower chest wall. Skin was cleaned with chlorhexidine solution. 1% lidocaine was administered in the skin intercostal space during administration of local anesthetic. Left pleural fluid was entered. Small amount of yellowish fluid was withdrawn for the patient from the pleural space confirming the site of the chest tube placement as well. After that, a large bore needle entered into the pleural space. Guidewire threaded through the needle into the pleural space without any difficulty. After confirming the needle in the pleural fluid, needle was removed leaving the guidewire in place. Incision given at the access site for the patient in the left chest wall. Plastic dilator was used. Progressive large dilation for the patient was done of the tract up to 22-Cypriot size. A 20-Cypriot chest tube inserted over the guidewire by Seldinger technique for the patient in the left pleural space without any difficulty. Chest tube for the patient was secured. The samples of the pleural fluid was taken for 200 mL, additional 800 mL of fluid was noted clamping the Pleur-evac. The Pleur-evac will remain clamped for about an hour. The patient released back to the suction after that. The chest x-ray for the patient will be done few hours later. The patient to reassess the improvement in the aeration of the lung. The pleural fluid specimen will be analyzed. She was also ordered Dilaudid 0.5 mg every 4 hours p.r.n. for pain, first dose given now. Zofran will be continued p.r.n. for the medical management of any nausea or vomiting related to the pain medication use. ARNAUD BREWER MD CM:LULY:PROCEDURE NOTE [id number] ARNAUD ESPAÑA MD
--- NOTE | ~2017-05-10 | PR ---
[place], [place] PROGRESS NOTE NAME: GILBERT BOUDREAUX UNIT #: [id number] ROOM: 419 DOCTOR: DANIELLA ESPAÑA MD,ARNAUD BIRTHDATE: [birth year] DOS: 05/20/2017 SUBJECTIVE: She has been noted comfortable at this time, sitting on the chair. Denies symptoms of hemoptysis or chest pain. Denies symptoms of abdominal pain. OBJECTIVE: VITAL SIGNS: For the patient which has been recorded shows a normal temperature of 99.6 degree Fahrenheit, respiratory rate 18, heart rate 82, blood pressure 107/55. Pulse oxygen saturation on room air 97% saturation. HEENT: Showed no acute change. NECK: Supple. CARDIOVASCULAR: S1, S2 audible. LUNGS: Decreased breath sounds in lower portion of the lungs bilaterally without any crackles. ABDOMEN: Soft and nontender with moderate ascites. The bowel sounds present. EXTREMITIES: Without any acute edema. LABORATORY DATA: CBC today, hemoglobin 8.5, hematocrit 25.4, and platelet count were normal. IMPRESSION: 1. The patient with a loculated pleural fluid in the left side secondary to chemical pleurodesis, seemed to be mostly successful. 2. Right pleural fluid as well related to underlying cirrhosis of the liver. 3. Recurrence of the ascites. PLAN OF MANAGEMENT: No changes from the pulmonary standpoint for the patient. Continue the current medical treatment as previously in progress. Usual care. All other supportive plan of therapy and management plan. Additional treatment changes to be made for the patient based on the progression of the illness. ARNAUD BREWER MD CM:PNTRANS [id number] ARNAUD ESPAÑA MD 05/20/17 1310 interface
--- NOTE | ~2017-05-10 | O ---
[place], [place] OPERATIVE NOTE NAME: GILBERT BOUDREAUX UNIT #: [id number] ROOM: [place] [id number] DOCTOR: RIVERA NEUMANN,RODNEY BIRTHDATE: [birth year] DOS: 05/13/2017 HISTORY OF PRESENT ILLNESS: A 77-year-old patient who presented with chief complaint of anemia, guaiac positivity, history of cirrhosis, portal hypertension, history of ascites formation status post multiple paracentesis. PROCEDURE: Today's procedure part of investigation is panendoscopy plus biopsy. PREMEDICATION: Versed and Diprivan. SCOPE: Olympus forward-viewing gastroscope Q10 video. REPORT: After putting the patient in left lateral position and application of lubricant to the scope, the scope was introduced. Thereafter under direct visualization, advanced through the length of esophagus without difficulty. Esophageal ulcers noticed secondary to reflux. Esophageal varicosities noticed, these are 2+ and nonbleeder. Multiple esophageal ulceration secondary to reflux identified. Gastric pouch was entered. A 3 cm hiatal hernia seen. Gastritis identified. Antral biopsy was obtained for gastritis. Duodenal bulb, second and third part within normal limits. The patient extubated and tolerated the procedure well. IMPRESSION: Reflux, esophageal ulcer, hiatal hernia, and gastritis. PLAN AND DISCUSSION: We will keep this patient on pantoprazole 40 mg daily, Gaviscon 1 tablet at bedtime, antireflux measures with elevation of the head of the bed 6 inch all the time and follow up on H and H transfusion as may be necessary. FINAL DIAGNOSES: Esophageal ulcers 2+, esophageal varicosities, hiatal hernia, gastritis. RODNEY STAFFORD MD CM:OPRECORD:OPERATIVE NOTE [id number] RODNEY STAFFORD MD 05/13/17 1416 interface
--- NOTE | ~2017-05-10 | CON ---
[place], [place] REPORT OF CONSULTATION NAME: GILBERT BOUDREAUX UNIT #: [id number] ROOM: 411 DOCTOR: RODNEY STAFFORD MD BIRTHDATE: [birth year] DOS: 05/10/2017 GASTROENDOSCOPIC REPORT HISTORY OF PRESENT ILLNESS: A 77-year-old patient who presented with chief complaint of shortness of breath, increased abdominal girth, has been admitted for paracentesis and possible thoracentesis for pleural effusion and shortness of breath. PAST MEDICAL HISTORY: Associated with cirrhosis, abnormal liver function test, hypertension, hyperlipidemia, protein-calorie malnutrition and history of celiac disease as well. The patient also due to status of presence of the cirrhosis she has. PAST SURGICAL HISTORY: Hysterectomy. SOCIAL HISTORY: Nonsmoker at the present time; however, denies alcohol except many decades ago. ALLERGIES: No known medication. FAMILY HISTORY: Father with colonic carcinoma. MEDICATIONS: List at home reviewed. REVIEW OF SYSTEMS: HEENT: Denies double vision, blurred vision. RESPIRATORY: Admits to shortness of breath. CARDIOVASCULAR: Denies chest pain. DIGESTIVE SYSTEM: Increased abdominal girth. NEUROMUSCULOSKELETAL: Diffuse peripheral edema, anasarca. PHYSICAL EXAMINATION: VITAL SIGNS: Stable. HEENT: Head normocephalic, nontraumatic. Mouth and buccal mucosa benign. NECK: Supple, no thyromegaly, no cervical lymphadenopathy. CHEST: Symmetric anatomy. A few scattered rhonchi. HEART: Normal sinus rhythm, but history of atrial fibrillation. ABDOMEN: Still retained ascites, status post paracentesis. EXTREMITIES: 3+ edema, particularly lower extremity. NEUROLOGIC: Alert and slow in orientation, however. IMPRESSION: Nonalcoholic steatohepatitis by history, history of celiac disease, pleural effusion, ascites, protein-calorie malnutrition. LABORATORY DATA: Labs have been reviewed. Records reviewed. Severe anemia H and H of 8 and 25 with normal platelets of 250 was noticed. Lactic acid normal. Comprehensive metabolic panel signifies elevation of GOT/GPT 64/43 respectively. Alkaline phosphatase elevation to 180, bilirubin of 1.3. Acute abdominal series have been moderate constipation. Negative for bowel [place], [place] REPORT OF CONSULTATION NAME: GILBERT BOUDREAUX UNIT #: [id number] ROOM: 411 DOCTOR: RODNEY STAFFORD MD BIRTHDATE: [birth year] obstruction, left pleural effusion, all has been noticed. PLAN AND DISCUSSION: Continuation with diuresis with Aldactone and Lasix as well as another session of paracentesis past Saturday and thoracentesis is going to be taken care of by Dr. Fagan tomorrow and comfort care essentially. OTHER ADJUNCTIVE DIAGNOSES: As outlined in paragraph of past medical and surgical history has a sequelae of cirrhosis. Thank you very much indeed. RODNEY STAFFORD MD CM:CONSTR:REPORT OF CONSULTATION 1818 05/11/17 0645 interface
--- NOTE | ~2017-05-10 | PR ---
[place], [place] PROGRESS NOTE NAME: [id number] UNIT #: [id number] ROOM: [facility] DOCTOR: DANIELLA ESPAÑA MD,ARNAUD BIRTHDATE: [birth year] DOS: 05/16/2017 PULMONARY PROGRESS NOTE SUBJECTIVE: The patient was noted comfortable at this time. Chest tube of the patient still remains in place. Plan for pleurodesis to be done today for the left pleural effusion. She has a total of 350 mL pleural fluid drained for the patient in the last 24 hours. She denies symptoms of hemoptysis, which has been noted related to the chest of the patient was well controlled with current medication with use of Dilaudid intermittent use. She had not been reported any symptoms of cough. There has not reported any symptoms of fever or chills. Denies symptoms of nausea, vomiting, diarrhea, or headache. Denies any symptoms of hemoptysis. Remaining systems were reviewed. They were noted all negative. The patient has an ultrasound of the abdomen that was done yesterday on the patient ordered by the primary care attending for the patient reported with cholelithiasis, large amount of pericholecystic fluid for the patient with edema related to the hepatic disease, moderate to large ascites was demonstrated in all four quadrants of the abdomen. Large right pleural fluid was reported. OBJECTIVE: VITAL SIGNS: For the patient, which has been recorded showed the temperature of the patient noted as 100.7 degrees Fahrenheit early this morning at 4:00 a.m. Otherwise, the temperature noted as normal, respiratory rate range between 18-24, heart rate 92-88, blood pressure 101/35-110/45. Pulse oxygen saturation of the patient noted as 96% on room air. HEENT: Examination shows head was atraumatic. Eyes nonicterus. NECK: Supple. CARDIOVASCULAR: S1, S2 is audible. LUNGS: The patient was noted with decreased breath sounds in the right lower lung. ABDOMEN: Soft with moderate ascites. It was nontender. The bowel sounds present. EXTREMITIES: The patient was noted without any acute edema, clubbing or cyanosis. Visible skin. No lesions or rashes. MUSCULOSKELETAL: The patient noted without any acute deformities. LABORATORY DATA: Labs today, hemoglobin 7.1, hematocrit 21.1, WBC count normal, platelet count was normal. Fecal occult blood was noted as negative. The CMP of the patient this morning, BUN 36, creatinine 1.18. Sodium 130?chloride of 97. Bilirubin 1.9 for this patient as a direct bilirubin and total bilirubin 3.9. IMPRESSION: 1. The patient who has been currently noted with liver dysfunction. The patient with liver recurrence of the ascites, left pleural fluid, which has been drained for this patient with a chest tube remains in place, but increasing right pleural effusion as well. 2. The patient with anemia for the patient with chronic disease. There was no [place], [place] PROGRESS NOTE NAME: GILBERT BOUDREAUX UNIT #: [id number] ROOM: [facility] DOCTOR: DANIELLA ESPAÑA MD,ARNAUD BIRTHDATE: [birth year] GI bleeding noted actively at this point. 3. Mild coagulopathy related to liver dysfunction. 4. Abnormal liver function status rather related to the current liver dysfunction. PLAN OF MANAGEMENT: The patient would be continued on the current plan of treatment for the patient at this time. The chemical pleurodesis will be done today. The patient at the bedside with talc slurry. Continuation in the meantime of the previous treatment. Low grade fever for the patient noted which will be monitored for at this time. At this time, there were no signs of infection noted; however, the patient might require another paracentesis. The patient had fluid to be sent, to rule out infection in the abdomen. Usual care, supportive therapy, plan of management, other care, plan of treatment. ARNAUD BREWER MD CM:PNTRANS [id number] ARNAUD ESPAÑA MD 05/16/171932 interface
--- NOTE | ~2017-05-10 | PR ---
[place], [place] PROGRESS NOTE NAME: GILBERT BOUDREAUX [facility] #: [id number] UNIT #: [id number] ROOM: 419 DOCTOR: DANIELLA ESPAÑA MD,ARNAUD BIRTHDATE: [birth year] DOS: 05/17/2017 SUBJECTIVE: She has been noted quite comfortable at this time this morning. She has not been reported with any symptoms of chest pain or any abdominal pain. The chemical pleurodesis was done yesterday successfully at bedside. The patient noted with a temperature of 101.5 degrees Fahrenheit. The patient has anxiety. She denies symptoms of hemoptysis. Denies any abdominal pain at the present time. Denies symptoms of dysuria. The chest tube remains in place after chemical pleurodesis with progressive reduction in the pleural fluid drainage was noted. Remaining systems were reviewed. They were noted all negative. OBJECTIVE: VITAL SIGNS: Temperature 101.6 degrees Fahrenheit was noted at 20 hours and midnight as well. The respiratory rate recorded 16-18, heart rate 64, blood pressure 135/72-95/54. Pulse oxygen saturation on room air 95% saturation. HEENT: Shows no new change. NECK: Supple. Head was atraumatic. CARDIOVASCULAR: S1, S2 is audible. LUNGS: The patient was noted without any wheezing. Other scattered crackles in the left lower lung. Decreased breath sounds in the right lower lung. ABDOMEN: Soft, nontender with obesity. EXTREMITIES: The patient was noted without any acute edema. MUSCULOSKELETAL: Without any acute deformities. LABORATORY DATA: CBC today: WBC count 13.9, hemoglobin 7.1, hematocrit 21.3, platelet count was normal. CMP this morning: BUN 36, creatinine 1.1, glucose 104. Sodium 131. IMPRESSION: Fever of unknown etiology. Chest tube drainage was noted significantly decreased, progressive after pleurodesis with about 50 mL or so pleural fluid was noted after the achievement of pleurodesis with initial fluid drainage of 240 mL. The chest x-ray done this morning noted significant improvement in the aeration of the lung with a good pleurodesis results with some haziness noted. Pleural fluid in the right side appeared to be small to moderate elevation of right hemidiaphragm. PLAN OF MANAGEMENT: Proceed with the paracentesis. Removed the chest tube as well. Monitoring the temperature. Sent the abdominal fluid for the cultures as well. Usual care. Supportive therapy, plan of management, treatment and care. [place], [place] PROGRESS NOTE NAME: GILBERT BOUDREAUX UNIT #: [id number] ROOM: [facility] DOCTOR: ARNAUD HANSON MD BIRTHDATE: [birth year] ARNAUD BREWER MD CM:PNTRANS [id number] ARNAUD ESPAÑA MD 05/18/17 0055 interface
[~2017-05-10 08:52] MED LIST changes: +CIPRO500 MG PO; +FUROSEMIDE20 M1 PO; +LOSARTAN-HCTZ1 EACH PO; +POTASSIUM CHLOR8 ME1 PO
[2017-05-10 09:08] VITALS: BP 121/57
[2017-05-10 09:45] LABS: BASO # 0.1 10*3/uL (0.0-0.1); BASO % 1.1 % (0.0-1.0); EOS # 0.1 10*3/uL (0.0-0.4); EOS % 0.8 % (1.0-4.0); HEMATOCRIT 25.4 % (37.0-47.0); HEMOGLOBIN 8.1 g/dl (12.0-16.0); LYMPH # 0.8 10*3/uL (1.3-4.4); LYMPH % 11.7 % (27.0-41.0); MEAN CELL VOLUME 91.4 fl (81.0-99.0); MEAN CORPUSCULAR HGB 29.1 pg (27.0-31.0); MEAN CORPUSCULAR HGB CONC 31.9 g/dl (33.0-37.0); MEAN PLATELET VOLUME 10.2 fl (9.6-12.3); MONO # 0.7 10*3/uL (0.1-1.0); MONO % 9.3 % (3.0-9.0); NEUT # 5.5 10*3/uL (2.3-7.9); NEUT % 76.5 % (47.0-73.0); PLATELET COUNT AUTOMATED 259 10*3/uL (130-400); RED BLOOD COUNT 2.78 10*6/uL (4.10-5.10); RED CELL DISTRI WIDTH 17.6 % (0-14.5); WHITE BLOOD COUNT 7.2 10*3/uL (4.8-10.8)
[2017-05-10 09:56] LABS: ACT PARTIAL THROMBO TIME 25.1 SECONDS (20.8-31.5); INTERNATIONAL NORM RATIO 1.2 (2.0-3.5)
[2017-05-10 10:02] LABS: ALBUMIN 2.3 gm/dl (3.1-4.5); ALKALINE PHOSPHATASE 180 U/L (45-117); BUN 27 mg/dl (7-24); CHLORIDE 98 mmol/L (98-107); CREATININE 0.76 mg/dL (0.55-1.02); POTASSIUM 4.2 mmol/L (3.5-5.1); SGOT/AST 64 IU/L (3-35); SGPT/ALT 43 U/L (12-78); SODIUM 131 mmol/L (136-145); TOTAL PROTEIN 6.6 gm/dL (6.4-8.2)
[2017-05-10 10:04] LABS: TROPONIN I 0.023 ng/ml (<0.045)
[2017-05-10 10:08] VITALS: BP 118/68
[2017-05-10 11:39] VITALS: BP 120/74
[2017-05-10 12:00] VITALS: BP 124/63
[2017-05-10 16:00] VITALS: BP 112/61
[2017-05-10 20:00] VITALS: BP 109/64
[2017-05-11] VITALS (16 sets, daily range): BP systolic 60–108; BP diastolic 30–64
[2017-05-11 05:56] LABS: ALBUMIN 1.8 gm/dl (3.1-4.5); ALKALINE PHOSPHATASE 149 U/L (45-117); BUN 24 mg/dl (7-24); CHLORIDE 100 mmol/L (98-107); CHOLESTEROL 97 mg/dL (<200); CREATININE 0.66 mg/dL (0.55-1.02); HDL CHOLESTEROL 22 mg/dl (40-60); LDL CHOLESTEROL 67 mg/dL (9-159); PHOSPHOROUS 2.9 mg/dL (2.5-4.9); POTASSIUM 4.3 mmol/L (3.5-5.1); SGOT/AST 56 IU/L (3-35); SGPT/ALT 36 U/L (12-78); SODIUM 133 mmol/L (136-145); TOTAL PROTEIN 5.3 gm/dL (6.4-8.2); TRIGLYCERIDES 40 mg/dl (<150); VLDL CHOLESTEROL 8 mg/dL (6-40)
[2017-05-11 06:13] LABS: BASO # 0.1 10*3/uL (0.0-0.1); BASO % 1.3 % (0.0-1.0); EOS # 0.2 10*3/uL (0.0-0.4); EOS % 3.8 % (1.0-4.0); HEMATOCRIT 23.7 % (37.0-47.0); HEMOGLOBIN 7.8 g/dl (12.0-16.0); LYMPH # 1.6 10*3/uL (1.3-4.4); LYMPH % 24.8 % (27.0-41.0); MEAN CELL VOLUME 90.1 fl (81.0-99.0); MEAN CORPUSCULAR HGB 29.7 pg (27.0-31.0); MEAN CORPUSCULAR HGB CONC 32.9 g/dl (33.0-37.0); MEAN PLATELET VOLUME 10.5 fl (9.6-12.3); MONO # 0.8 10*3/uL (0.1-1.0); MONO % 12.4 % (3.0-9.0); NEUT # 3.7 10*3/uL (2.3-7.9); NEUT % 57.4 % (47.0-73.0); PLATELET COUNT AUTOMATED 242 10*3/uL (130-400); RED BLOOD COUNT 2.63 10*6/uL (4.10-5.10); RED CELL DISTRI WIDTH 17.5 % (0-14.5); WHITE BLOOD COUNT 6.4 10*3/uL (4.8-10.8)
[2017-05-11 06:14] LABS: ACT PARTIAL THROMBO TIME 28.7 SECONDS (20.8-31.5); INTERNATIONAL NORM RATIO 1.3 (2.0-3.5)
[2017-05-11 07:13] LABS: VITAMIN D, 25-HYDROXY 90.2 ng/mL (30-100)
[2017-05-11 09:10] LABS: BODY FLUID WBC 191 /uL
[2017-05-11 09:46] LABS: BF LYMPHOCYTES 54 %; BF MACROPHAGES 37 %; BF MESOTHELIALS 1 %; BF NEUTROPHILS 7 %
[2017-05-12] VITALS (63 sets, daily range): BP systolic 9–140; BP diastolic 37–82
[2017-05-12 05:30] LABS: BUN 31 mg/dl (7-24); CHLORIDE 98 mmol/L (98-107); CREATININE 1.05 mg/dL (0.55-1.02); POTASSIUM 4.3 mmol/L (3.5-5.1); SODIUM 129 mmol/L (136-145)
[2017-05-12 05:58] LABS: BASO # 0.1 10*3/uL (0.0-0.1); BASO % 0.5 % (0.0-1.0); EOS # 0.1 10*3/uL (0.0-0.4); EOS % 0.5 % (1.0-4.0); HEMATOCRIT 23.4 % (37.0-47.0); HEMOGLOBIN 7.6 g/dl (12.0-16.0); LYMPH # 2.4 10*3/uL (1.3-4.4); LYMPH % 17.1 % (27.0-41.0); MEAN CORPUSCULAR HGB 29.2 pg (27.0-31.0); MEAN CORPUSCULAR HGB CONC 32.5 g/dl (33.0-37.0); MEAN PLATELET VOLUME 10.4 fl (9.6-12.3); MONO # 1.5 10*3/uL (0.1-1.0); MONO % 10.5 % (3.0-9.0); NEUT % 70.8 % (47.0-73.0); PLATELET COUNT AUTOMATED 303 10*3/uL (130-400); RED CELL DISTRI WIDTH 16.9 % (0-14.5); WHITE BLOOD COUNT 14.2 10*3/uL (4.8-10.8)
[2017-05-13] VITALS (10 sets, daily range): BP systolic 77–100; BP diastolic 39–57
[2017-05-13 05:41] LABS: CREATININE 1.29 mg/dL (0.55-1.02); POTASSIUM 4.4 mmol/L (3.5-5.1)
[2017-05-13 05:49] LABS: BASO % 0.2 % (0.0-1.0); EOS # 0.2 10*3/uL (0.0-0.4); EOS % 2.5 % (1.0-4.0); HEMATOCRIT 20.5 % (37.0-47.0); HEMOGLOBIN 6.8 g/dl (12.0-16.0); LYMPH # 1.5 10*3/uL (1.3-4.4); LYMPH % 16.6 % (27.0-41.0); MEAN CELL VOLUME 88.4 fl (81.0-99.0); MEAN CORPUSCULAR HGB 29.3 pg (27.0-31.0); MEAN CORPUSCULAR HGB CONC 33.2 g/dl (33.0-37.0); MEAN PLATELET VOLUME 10.5 fl (9.6-12.3); MONO # 1.1 10*3/uL (0.1-1.0); MONO % 12.3 % (3.0-9.0); NEUT # 6.1 10*3/uL (2.3-7.9); PLATELET COUNT AUTOMATED 230 10*3/uL (130-400); RED BLOOD COUNT 2.32 10*6/uL (4.10-5.10); RED CELL DISTRI WIDTH 16.4 % (0-14.5); WHITE BLOOD COUNT 8.9 10*3/uL (4.8-10.8)
[2017-05-13 14:30] LABS: URINE CHLORIDE, RANDOM < 10 mmol/L
[2017-05-13 20:33] LABS: BASO % 0.3 % (0.0-1.0); EOS # 0.1 10*3/uL (0.0-0.4); EOS % 1.2 % (1.0-4.0); HEMATOCRIT 22.7 % (37.0-47.0); HEMOGLOBIN 7.5 g/dl (12.0-16.0); LYMPH # 0.8 10*3/uL (1.3-4.4); LYMPH % 8.8 % (27.0-41.0); MEAN CELL VOLUME 87.6 fl (81.0-99.0); MEAN PLATELET VOLUME 10.2 fl (9.6-12.3); MONO # 1.1 10*3/uL (0.1-1.0); NEUT # 7.3 10*3/uL (2.3-7.9); NEUT % 77.3 % (47.0-73.0); PLATELET COUNT AUTOMATED 243 10*3/uL (130-400); RED BLOOD COUNT 2.59 10*6/uL (4.10-5.10); RED CELL DISTRI WIDTH 16.3 % (0-14.5); WHITE BLOOD COUNT 9.5 10*3/uL (4.8-10.8)
[2017-05-13 21:10] LABS: ALBUMIN 2.8 gm/dl (3.1-4.5); CREATININE 1.45 mg/dL (0.55-1.02); TOTAL PROTEIN 5.3 gm/dL (6.4-8.2)
[2017-05-14] VITALS (11 sets, daily range): BP systolic 92–118; BP diastolic 38–56
[2017-05-14 05:36] LABS: ALBUMIN 2.5 gm/dl (3.1-4.5); CREATININE 1.31 mg/dL (0.55-1.02); POTASSIUM 4.1 mmol/L (3.5-5.1); TOTAL PROTEIN 4.8 gm/dL (6.4-8.2)
[2017-05-14 06:03] LABS: BASO % 0.2 % (0.0-1.0); EOS # 0.1 10*3/uL (0.0-0.4); EOS % 1.3 % (1.0-4.0); HEMOGLOBIN 6.3 g/dl (12.0-16.0); LYMPH # 1.2 10*3/uL (1.3-4.4); LYMPH % 13.3 % (27.0-41.0); MEAN CELL VOLUME 86.8 fl (81.0-99.0); MEAN CORPUSCULAR HGB 28.8 pg (27.0-31.0); MEAN CORPUSCULAR HGB CONC 33.2 g/dl (33.0-37.0); MEAN PLATELET VOLUME 10.4 fl (9.6-12.3); MONO % 11.5 % (3.0-9.0); NEUT # 6.4 10*3/uL (2.3-7.9); NEUT % 73.1 % (47.0-73.0); PLATELET COUNT AUTOMATED 220 10*3/uL (130-400); RED BLOOD COUNT 2.19 10*6/uL (4.10-5.10); WHITE BLOOD COUNT 8.8 10*3/uL (4.8-10.8)
[2017-05-15] VITALS: BP 104/51
[2017-05-15 04:00] VITALS: BP 105/51
[2017-05-15 05:56] LABS: BASO % 0.2 % (0.0-1.0); EOS # 0.1 10*3/uL (0.0-0.4); EOS % 1.7 % (1.0-4.0); HEMATOCRIT 22.4 % (37.0-47.0); HEMOGLOBIN 7.8 g/dl (12.0-16.0); LYMPH # 1.2 10*3/uL (1.3-4.4); LYMPH % 14.7 % (27.0-41.0); MEAN CELL VOLUME 84.8 fl (81.0-99.0); MEAN CORPUSCULAR HGB 29.5 pg (27.0-31.0); MEAN CORPUSCULAR HGB CONC 34.8 g/dl (33.0-37.0); MEAN PLATELET VOLUME 10.5 fl (9.6-12.3); MONO % 12.4 % (3.0-9.0); NEUT # 5.7 10*3/uL (2.3-7.9); NEUT % 70.5 % (47.0-73.0); PLATELET COUNT AUTOMATED 230 10*3/uL (130-400); RED BLOOD COUNT 2.64 10*6/uL (4.10-5.10); RED CELL DISTRI WIDTH 15.4 % (0-14.5); WHITE BLOOD COUNT 8.2 10*3/uL (4.8-10.8)
[2017-05-15 05:58] LABS: ALBUMIN 2.7 gm/dl (3.1-4.5); CREATININE 1.17 mg/dL (0.55-1.02); POTASSIUM 3.9 mmol/L (3.5-5.1); TOTAL PROTEIN 4.7 gm/dL (6.4-8.2)
[2017-05-15 08:00] VITALS: BP 98/52
[2017-05-15 12:30] VITALS: BP 90/58
[2017-05-15 16:30] VITALS: BP 110/45
[2017-05-15 20:00] VITALS: BP 106/55
[2017-05-16] VITALS: BP 122/55
[2017-05-16 04:00] VITALS: BP 101/35
[2017-05-16 05:43] LABS: INTERNATIONAL NORM RATIO 1.4 (2.0-3.5)
[2017-05-16 05:47] LABS: ALBUMIN 3.1 gm/dl (3.1-4.5); BILIRUBIN, DIRECT 1.9 mg/dL (0.0-0.2); CREATININE 1.18 mg/dL (0.55-1.02); PHOSPHOROUS 2.1 mg/dL (2.5-4.9); POTASSIUM 3.8 mmol/L (3.5-5.1)
[2017-05-16 06:24] LABS: BASO % 0.3 % (0.0-1.0); EOS # 0.1 10*3/uL (0.0-0.4); EOS % 1.7 % (1.0-4.0); HEMATOCRIT 21.1 % (37.0-47.0); HEMOGLOBIN 7.1 g/dl (12.0-16.0); LYMPH % 13.5 % (27.0-41.0); MEAN CELL VOLUME 84.7 fl (81.0-99.0); MEAN CORPUSCULAR HGB 28.5 pg (27.0-31.0); MEAN CORPUSCULAR HGB CONC 33.6 g/dl (33.0-37.0); MEAN PLATELET VOLUME 10.1 fl (9.6-12.3); NEUT # 5.3 10*3/uL (2.3-7.9); NEUT % 71.1 % (47.0-73.0); PLATELET COUNT AUTOMATED 212 10*3/uL (130-400); RED BLOOD COUNT 2.49 10*6/uL (4.10-5.10); RED CELL DISTRI WIDTH 15.4 % (0-14.5); WHITE BLOOD COUNT 7.5 10*3/uL (4.8-10.8)
[2017-05-16 08:00] VITALS: BP 97/50
[2017-05-16 12:00] VITALS: BP 126/68
[2017-05-16 16:00] VITALS: BP 121/58
[2017-05-16 20:00] VITALS: BP 135/85
[2017-05-17] VITALS: BP 146/71; BP 92/52
[2017-05-17 04:00] VITALS: BP 135/72
[2017-05-17 04:59] LABS: BASO % 0.2 % (0.0-1.0); EOS % 0.1 % (1.0-4.0); HEMATOCRIT 21.2 % (37.0-47.0); HEMOGLOBIN 7.1 g/dl (12.0-16.0); LYMPH # 1.2 10*3/uL (1.3-4.4); LYMPH % 8.5 % (27.0-41.0); MEAN CELL VOLUME 85.5 fl (81.0-99.0); MEAN CORPUSCULAR HGB 28.6 pg (27.0-31.0); MEAN CORPUSCULAR HGB CONC 33.5 g/dl (33.0-37.0); MONO # 1.4 10*3/uL (0.1-1.0); MONO % 10.1 % (3.0-9.0); NEUT # 11.2 10*3/uL (2.3-7.9); NEUT % 80.6 % (47.0-73.0); PLATELET COUNT AUTOMATED 192 10*3/uL (130-400); RED BLOOD COUNT 2.48 10*6/uL (4.10-5.10); RED CELL DISTRI WIDTH 15.6 % (0-14.5); WHITE BLOOD COUNT 13.9 10*3/uL (4.8-10.8)
[2017-05-17 05:15] LABS: ALBUMIN 3.3 gm/dl (3.1-4.5); CREATININE 1.11 mg/dL (0.55-1.02); POTASSIUM 3.6 mmol/L (3.5-5.1); TOTAL PROTEIN 4.8 gm/dL (6.4-8.2)
[2017-05-17 08:00] VITALS: BP 95/54
[2017-05-17 12:00] VITALS: BP 120/78
[2017-05-17 20:00] VITALS: BP 81/40
[2017-05-18] VITALS: BP 92/52
[2017-05-18 06:35] LABS: BASO % 0.4 % (0.0-1.0); EOS # 0.1 10*3/uL (0.0-0.4); EOS % 1.3 % (1.0-4.0); HEMOGLOBIN 7.5 g/dl (12.0-16.0); LYMPH # 0.8 10*3/uL (1.3-4.4); LYMPH % 7.3 % (27.0-41.0); MEAN CELL VOLUME 84.9 fl (81.0-99.0); MEAN CORPUSCULAR HGB CONC 34.1 g/dl (33.0-37.0); MONO # 1.1 10*3/uL (0.1-1.0); NEUT # 8.9 10*3/uL (2.3-7.9); NEUT % 80.4 % (47.0-73.0); PLATELET COUNT AUTOMATED 200 10*3/uL (130-400); RED BLOOD COUNT 2.59 10*6/uL (4.10-5.10); RED CELL DISTRI WIDTH 15.9 % (0-14.5)
[2017-05-18 07:01] LABS: ALBUMIN 3.1 gm/dl (3.1-4.5); CREATININE 1.12 mg/dL (0.55-1.02); PHOSPHOROUS 2.7 mg/dL (2.5-4.9); POTASSIUM 3.4 mmol/L (3.5-5.1); TOTAL PROTEIN 5.1 gm/dL (6.4-8.2)
[2017-05-18 08:00] VITALS: BP 91/42
[2017-05-18 11:50] VITALS: BP 90/42
[2017-05-18 12:00] VITALS: BP 90/48
[2017-05-18 16:00] VITALS: BP 93/45
[2017-05-18 20:00] VITALS: BP 97/45
[2017-05-19] VITALS: BP 95/48
[2017-05-19 06:19] LABS: BASO # 0.1 10*3/uL (0.0-0.1); BASO % 0.6 % (0.0-1.0); EOS # 0.1 10*3/uL (0.0-0.4); EOS % 0.6 % (1.0-4.0); HEMATOCRIT 21.9 % (37.0-47.0); HEMOGLOBIN 7.5 g/dl (12.0-16.0); LYMPH # 1.2 10*3/uL (1.3-4.4); LYMPH % 12.8 % (27.0-41.0); MEAN CELL VOLUME 85.9 fl (81.0-99.0); MEAN CORPUSCULAR HGB 29.4 pg (27.0-31.0); MEAN CORPUSCULAR HGB CONC 34.2 g/dl (33.0-37.0); MEAN PLATELET VOLUME 9.9 fl (9.6-12.3); MONO % 10.5 % (3.0-9.0); NEUT # 7.2 10*3/uL (2.3-7.9); NEUT % 74.8 % (47.0-73.0); PLATELET COUNT AUTOMATED 202 10*3/uL (130-400); RED BLOOD COUNT 2.55 10*6/uL (4.10-5.10); RED CELL DISTRI WIDTH 16.7 % (0-14.5); WHITE BLOOD COUNT 9.6 10*3/uL (4.8-10.8)
[2017-05-19 06:52] LABS: CREATININE 1.1 mg/dL (0.55-1.02); POTASSIUM 3.2 mmol/L (3.5-5.1)
[2017-05-19 08:00] VITALS: BP 99/45
[2017-05-19 12:00] VITALS: BP 93/51
[2017-05-19 16:00] VITALS: BP 95/51
[2017-05-19 20:00] VITALS: BP 99/55
[2017-05-20] VITALS: BP 90/48
[2017-05-20 06:49] LABS: BASO # 0.1 10*3/uL (0.0-0.1); BASO % 0.7 % (0.0-1.0); EOS % 0.4 % (1.0-4.0); HEMATOCRIT 25.4 % (37.0-47.0); HEMOGLOBIN 8.5 g/dl (12.0-16.0); LYMPH # 1.3 10*3/uL (1.3-4.4); LYMPH % 14.1 % (27.0-41.0); MEAN CELL VOLUME 87.3 fl (81.0-99.0); MEAN CORPUSCULAR HGB 29.2 pg (27.0-31.0); MEAN CORPUSCULAR HGB CONC 33.5 g/dl (33.0-37.0); MEAN PLATELET VOLUME 9.7 fl (9.6-12.3); MONO % 10.8 % (3.0-9.0); NEUT % 73.4 % (47.0-73.0); PLATELET COUNT AUTOMATED 214 10*3/uL (130-400); RED BLOOD COUNT 2.91 10*6/uL (4.10-5.10); RED CELL DISTRI WIDTH 17.3 % (0-14.5); WHITE BLOOD COUNT 9.5 10*3/uL (4.8-10.8)
[2017-05-20 07:03] LABS: CREATININE 1.13 mg/dL (0.55-1.02); POTASSIUM 3.4 mmol/L (3.5-5.1)
[2017-05-20 08:00] VITALS: BP 107/55
[2017-05-20 12:00] VITALS: BP 101/53
[2017-05-20 16:00] VITALS: BP 105/48
[2017-05-20 20:00] VITALS: BP 103/56
[2017-05-21] VITALS: BP 109/48
[2017-05-21 08:00] VITALS: BP 100/61
[2017-05-21 12:00] VITALS: BP 106/64
[2017-05-21] MEDS ORDERED: ALDACTONE25 MG PO (12:36)
[2017-05-21] MEDS ORDERED: DIPHENHYDRAMINE25 M2 PO (12:36)
[2017-05-21] MEDS ORDERED: ATIVAN0.5 MG PO ×2 (12:37→16:10)
[2017-05-21 16:00] VITALS: BP 97/53
[2017-05-21] MEDS ORDERED: FUROSEMIDE20 M1 PO (16:10)
[2017-05-21] MEDS ORDERED: OXYCONTIN10 M1 PO (16:10)
[2017-05-21] MEDS ORDERED: OXYCODONE HCL5 M1 PO (16:10)
[2017-05-21] MEDS ORDERED: PROTONIX40 MG PO (16:10)
[2017-05-21 20:00] VITALS: BP 100/56
[2017-05-22] VITALS: BP 104/54
[2017-05-22 08:00] VITALS: BP 102/60
== END 2017-05-22 12:29 | disposition hospice, home (50) | DRG 441 ==
LOC: ED 08:52 → ICCU 11:32 → 4E 11:32 → EDHOLD 11:32 → 4E 11:38 → ICCU 05-11 20:43 → 4E 05-17 15:16
PROVIDERS: Hospitalist; Internal Medicine; Internal Medicine Critical Care Medicine; Internal Medicine Nephrology; Nurse Practitioner Family; Student in an Organized Health Care Education/Training Program
PROC: 3E0L3GC Introduction of Other Therapeutic Substance into Pleural Cavity, Percutaneous Approach (ICD-10-PCS; principal; 2017-05-10)
PROC: 0W9B30Z Drainage of Left Pleural Cavity with Drainage Device, Percutaneous Approach (ICD-10-PCS; 2017-05-11)
PROC: 0DB68ZX Excision of Stomach, Via Natural or Artificial Opening Endoscopic, Diagnostic (ICD-10-PCS; 2017-05-13)
PROC: 30233N1 Transfusion of Nonautologous Red Blood Cells into Peripheral Vein, Percutaneous Approach (ICD-10-PCS; 2017-05-14)
PROC: 3E0L3GC Introduction of Other Therapeutic Substance into Pleural Cavity, Percutaneous Approach (ICD-10-PCS; 2017-05-16)
PROC: 0W9G3ZZ Drainage of Peritoneal Cavity, Percutaneous Approach (ICD-10-PCS; 2017-05-17)
DX: K72.90 Hepatic failure, unspecified without coma (principal); N17.0 Acute kidney failure with tubular necrosis; I50.33 Acute on chronic diastolic (congestive) heart failure; A41.9 Sepsis, unspecified organism; E44.0 Moderate protein-calorie malnutrition; I95.9 Hypotension, unspecified; J91.8 Pleural effusion in other conditions classified elsewhere; J18.1 Lobar pneumonia, unspecified organism; K22.10 Ulcer of esophagus without bleeding; K76.6 Portal hypertension; E87.1 Hypo-osmolality and hyponatremia; I85.00 Esophageal varices without bleeding; D68.9 Coagulation defect, unspecified; Z66 Do not resuscitate; K70.31 Alcoholic cirrhosis of liver with ascites; K75.81 Nonalcoholic steatohepatitis (NASH); K44.9 Diaphragmatic hernia without obstruction or gangrene; K59.00 Constipation, unspecified; R62.7 Adult failure to thrive; I48.91 Unspecified atrial fibrillation; D63.8 Anemia in other chronic diseases classified elsewhere; E78.00 Pure hypercholesterolemia, unspecified; R91.8 Other nonspecific abnormal finding of lung field; K21.9 Gastro-esophageal reflux disease without esophagitis; K29.00 Acute gastritis without bleeding; K76.9 Liver disease, unspecified; K80.20 Calculus of gallbladder without cholecystitis without obstruction; E83.51 Hypocalcemia; I11.0 Hypertensive heart disease with heart failure; Z51.5 Encounter for palliative care; Z90.710 Acquired absence of both cervix and uterus; Z80.0 Family history of malignant neoplasm of digestive organs; Z79.899 Other long term (current) drug therapy; Z87.891 Personal history of nicotine dependence; Z82.49 Family history of ischemic heart disease and other diseases of the circulatory system; Z68.27 Body mass index [BMI] 27.0-27.9, adult